=== PATIENT | male | born 1960 | race Caucasian/White ===

== ENCOUNTER 2016-11-20 23:51 | Inpatient (IN) | payer BC, OTHER ==
[~2016-11-20] VITALS: Ht 175.3 cm; Wt 102.1 kg
[2016-11-21] MEDS ORDERED: INSULIN REG SUBCUT (00:13)
[2016-11-21] MEDS ORDERED: METF850T2 PO (00:14)
[2016-11-21] MEDS ORDERED: LISI10TA5 PO (00:15)
[2016-11-24] MEDS ORDERED: THIA100T13 PO (14:59)
[2016-11-24] MEDS ORDERED: MULT-24 PO (14:59)
[2016-11-24] MEDS ORDERED: Nicotine TD (14:59)
[2016-11-24] MEDS ORDERED: Lisinopril PO (14:59)
[2016-11-24] MEDS ORDERED: Acetaminophen PO (14:59)
[2016-11-24] MEDS ORDERED: ASPI-618 PO (14:59)
[2016-11-24] MEDS ORDERED: Metformin Hcl PO (14:59)
[2016-11-24] MEDS ORDERED: GLIP5TAB13 PO (14:59)
[2016-11-24] MEDS ORDERED: Blood Sugar Diagnostic VI (14:59)
[2016-11-24] MEDS ORDERED: Folic Acid PO (14:59)
[2016-11-24 19:19] VITALS: BP 173/108
[2016-11-24] MEDS ORDERED: LORAZEPAM 1 MG TABLET PO ONE (19:45)
[2016-11-24] MEDS ORDERED: DEXTROSE 50% 50 ML DISP.SYRIN IV PRN (19:45)
[2016-11-24 20:00] VITALS: BP 151/96
[2016-11-24 20:08] LABS: *AMPHETAMINE, URINE NEGATIVE (NEGATIVE); *BARBITURATE, URINE NEGATIVE (NEGATIVE); *CANNABINOID, URINE NEGATIVE (NEGATIVE); *COCCAINE, URINE NEGATIVE (NEGATIVE); *OPIATE, URINE POSITIVE (NEGATIVE); *PHENCYCLIDINE SCREEN,URINE NEGATIVE (NEGATIVE)
[2016-11-24] MEDS: BLOOD SUGAR DIAGNOSTIC 1 EACH STRIP VI SCH (20:10)
[2016-11-24] MEDS ORDERED: LOPERAMIDE HCL 2 MG CAPSULE PO PRN ×2 (20:45)
[2016-11-24] MEDS ORDERED: PROMETHAZINE HCL 25 MG/1 ML VIAL IM PRN (20:45)
[2016-11-24] MEDS ORDERED: LORAZEPAM 1 MG TABLET PO PRN ×2 (20:45)
[2016-11-24] MEDS ORDERED: LORAZEPAM 2 MG/1 ML VIAL IM PRN (20:45)
[2016-11-24] MEDS ORDERED: MAGNESIUM HYDROXIDE 30 ML LIQUID UDC PO PRN (20:45)
[2016-11-24] MEDS ORDERED: ACETAMINOPHEN 325 MG TABLET PO PRN (20:45)
[2016-11-24] MEDS ORDERED: DICYCLOMINE HCL 20 MG TABLET PO PRN (20:45)
[2016-11-24] MEDS ORDERED: ONDANSETRON ODT 4 MG TAB.RAPDIS SL PRN (20:45)
[2016-11-24] MEDS ORDERED: IBUPROFEN 600 MG TABLET PO PRN (20:45)
[2016-11-24] MEDS ORDERED: THIAMINE HCL 200 MG/2 ML VIAL IM ONE (20:45)
[2016-11-24] MEDS ORDERED: MAG HYDROX/AL HYDROX/SIMETH 30 ML LIQUID UDC PO PRN (20:45)
[2016-11-24] MEDS ORDERED: MIRALAX 17 GM POWD.PACK PO PRN (20:45)
[2016-11-24] MEDS: INSULIN REGULAR, HUMAN 300 UNITS/3 ML VIAL SQ PRN (20:52)
[2016-11-24] MEDS ORDERED: BUPRENORPHINE HCL 2 MG TAB.SUBL SL PRN (21:00)
[2016-11-24] MEDS: CLONIDINE HCL 0.1 MG TABLET PO PRN (21:20)
[2016-11-24] MEDS: GABAPENTIN 300 MG CAPSULE PO SCH (21:21)
[2016-11-24] MEDS: METFORMIN HCL 500 MG TABLET PO SCH (21:21)
[2016-11-24 22:54] LABS: BASOPHILS % (AUTO) 0.8 % (0.0-2.0); EOSINOPHILS # (AUTO) 0.1 K/uL (0.0-0.7); EOSINOPHILS % (AUTO) 1.4 % (0.0-7.0); HEMATOCRIT 37.5 % (40.0-50.0); HEMOGLOBIN 12.6 g/dL (14.0-18.0); LYMPHOCYTES # (AUTO) 1.5 K/uL (0.8-4.8); LYMPHOCYTES % (AUTO) 28.9 % (20.5-51.5); MEAN CORPUSCULAR HGB CONC 34 g/dL (32.0-37.0); MEAN CORPUSCULAR VOLUME 92.6 fL (82.0-92.0); MONOCYTES # (AUTO) 0.5 K/uL (0.1-1.30); MONOCYTES % (AUTO) 10.2 % (0.0-11.0); NEUTROPHILS % (AUTO) 58.7 % (38.5-71.5); PLATELET COUNT (AUTO) 121 K/uL (150-450); RED BLOOD CELL COUNT(AUTO) 4.05 MIL/uL (4.70-6.10); RED CELL DISTRIBUTION WIDTH 16.1 % (11.5-14.5); WHITE BLOOD COUNT (AUTO) 5.1 K/uL (4.0-11.2)
[2016-11-24 23:01] LABS: ALANINE AMINOTRANSFERASE 60 U/L (16-63); ALBUMIN 3.1 g/dL (3.4-5.0); ALKALINE PHOSPHATASE 73 U/L (50-136); AMYLASE 72 U/L (25-115); ASPARTATE AMINOTRANSFERASE 62 U/L (15-37); BILIRUBIN,TOTAL 0.5 mg/dL (0.2-1.0); CALCIUM 8.1 mg/dL (8.5-10.1); CARBON DIOXIDE 25 mmol/L (21-32); CHLORIDE 104 mmol/L (98-107); CREATININE 0.9 mg/dL (0.6-1.3); GFR 88 mL/min (>60); GLUCOSE 177 mg/dL (74-106); LIPASE 159 U/L (73-393); MAGNESIUM 1.5 mg/dL (1.8-2.4); POTASSIUM 3.1 mmol/L (3.5-5.1); SODIUM SERUM 139 mmol/L (136-145); TOTAL PROTEIN, SERUM 6.3 g/dL (6.4-8.2); UREA NITROGEN, BLOOD 11 mg/dL (7-18)
[2016-11-24 23:05] LABS: THYROID STIMULATING HORMONE 2.816 mIU/mL (0.358-3.740)
[2016-11-24 23:28] LABS: ETHANOL < 3 MG/DL (0-0)
[2016-11-25] VITALS (7 sets, daily range): BP systolic 108–147; BP diastolic 74–93
[2016-11-25 01:31] LABS: HIV-1 p24 ANTIGEN NON REACTIVE (NONREACTIVE); HIV-1/2 ANTIBODY NON REACTIVE (NONREACTIVE)
[2016-11-25] MEDS: CLONIDINE HCL 0.1 MG TABLET PO PRN ×4 (04:04→21:19)
[2016-11-25] MEDS: HYDROXYZINE PAMOATE 25 MG CAPSULE PO PRN (04:04)
[2016-11-25] MEDS: PANTOPRAZOLE SODIUM 40 MG TABLET.DR PO SCH (07:03)
[2016-11-25] MEDS: BLOOD SUGAR DIAGNOSTIC 1 EACH STRIP VI SCH ×4 (08:20→20:30)
[2016-11-25] MEDS: METFORMIN HCL 500 MG TABLET PO SCH ×2 (08:33→18:47)
[2016-11-25] MEDS: glipiZIDE 5 MG TABLET PO SCH ×2 (08:34→16:45)
[2016-11-25] MEDS: DOCUSATE SODIUM 250 MG CAPSULE PO SCH (08:35)
[2016-11-25] MEDS: FOLIC ACID 1 MG TABLET PO SCH (08:35)
[2016-11-25] MEDS: THIAMINE HCL 100 MG TABLET PO SCH (08:35)
[2016-11-25] MEDS: GABAPENTIN 300 MG CAPSULE PO SCH ×3 (08:35→20:39)
[2016-11-25] MEDS: MULTIVITAMINS,THERAPEUTIC TABLET PO SCH (08:35)
[2016-11-25] MEDS: ASPIRIN 81 MG TAB.CHEW GT SCH (08:36)
[2016-11-25] MEDS: INSULIN REGULAR, HUMAN 300 UNIT/3 ML VIAL SQ PRN ×3 (08:45→17:34)
[2016-11-25] MEDS ORDERED: TUBERCULIN,PURIF.PROT.DERIV. 5 TU/0.1 ML TEST ID ONE (09:00)
[2016-11-25] MEDS ORDERED: 5 DAY TAPER OF LORAZEPAM -SERENITY PROTOCOL PO PRN (09:00)
[2016-11-25] MEDS: LORAZEPAM 1 MG TABLET PO SCH ×4 (09:30→20:39)
[2016-11-25] MEDS ORDERED: MAGNESIUM OXIDE 400 MG TABLET PO ONE (11:45)
[2016-11-25] MEDS ORDERED: POTASSIUM CHLORIDE 20 MEQ TAB.PRT.SR PO ONE (20:15)
[2016-11-25] MEDS: INSULIN REGULAR, HUMAN 300 UNITS/3 ML VIAL SQ PRN (20:42)
[2016-11-26] MEDS: HYDROXYZINE PAMOATE 25 MG CAPSULE PO PRN ×2 (01:59→23:34)
[2016-11-26 03:17] VITALS: BP 151/94
[2016-11-26] MEDS: PANTOPRAZOLE SODIUM 40 MG TABLET.DR PO SCH (06:59)
[2016-11-26] MEDS: glipiZIDE 5 MG TABLET PO SCH ×2 (07:53→16:54)
[2016-11-26] MEDS: BLOOD SUGAR DIAGNOSTIC 1 EACH STRIP VI SCH ×4 (07:56→20:59)
[2016-11-26 08:00] VITALS: BP 145/88
[2016-11-26] MEDS: INSULIN REGULAR, HUMAN 300 UNIT/3 ML VIAL SQ PRN ×3 (08:02→16:54)
[2016-11-26] MEDS: MULTIVITAMINS,THERAPEUTIC TABLET PO SCH (08:15)
[2016-11-26] MEDS: ASPIRIN 81 MG TAB.CHEW GT SCH (08:15)
[2016-11-26] MEDS: THIAMINE HCL 100 MG TABLET PO SCH (08:15)
[2016-11-26] MEDS: FOLIC ACID 1 MG TABLET PO SCH (08:15)
[2016-11-26] MEDS: CLONIDINE HCL 0.1 MG TABLET PO PRN ×2 (08:16→14:19)
[2016-11-26] MEDS: METFORMIN HCL 500 MG TABLET PO SCH ×2 (08:16→18:24)
[2016-11-26] MEDS: DOCUSATE SODIUM 250 MG CAPSULE PO SCH (08:16)
[2016-11-26] MEDS: LORAZEPAM 1 MG TABLET PO SCH ×3 (08:16→20:51)
[2016-11-26] MEDS: GABAPENTIN 300 MG CAPSULE PO SCH ×3 (08:16→20:52)
[2016-11-26 08:35] LABS: CALCIUM 8.5 mg/dL (8.5-10.1); MAGNESIUM 1.7 mg/dL (1.8-2.4); POTASSIUM 4.2 mmol/L (3.5-5.1)
[2016-11-26 08:40] LABS: BASOPHILS % (AUTO) 0.7 % (0.0-2.0); EOSINOPHILS # (AUTO) 0.1 K/uL (0.0-0.7); EOSINOPHILS % (AUTO) 1.8 % (0.0-7.0); HEMATOCRIT 34.1 % (40.0-50.0); HEMOGLOBIN 11.4 g/dL (14.0-18.0); LYMPHOCYTES # (AUTO) 1.5 K/uL (0.8-4.8); LYMPHOCYTES % (AUTO) 30.5 % (20.5-51.5); MEAN CORPUSCULAR HEMOGLOBIN 31.1 uug (27.0-31.0); MEAN CORPUSCULAR HGB CONC 34 g/dL (32.0-37.0); MEAN CORPUSCULAR VOLUME 93.1 fL (82.0-92.0); MONOCYTES # (AUTO) 0.6 K/uL (0.1-1.30); MONOCYTES % (AUTO) 12.4 % (0.0-11.0); NEUTROPHILS # (AUTO) 2.7 K/uL (1.8-8.9); NEUTROPHILS % (AUTO) 54.6 % (38.5-71.5); PLATELET COUNT (AUTO) 123 K/uL (150-450); RED BLOOD CELL COUNT(AUTO) 3.66 MIL/uL (4.70-6.10); RED CELL DISTRIBUTION WIDTH 16.1 % (11.5-14.5); WHITE BLOOD COUNT (AUTO) 4.9 K/uL (4.0-11.2)
[2016-11-26 12:00] VITALS: BP 135/85
[2016-11-26] MEDS ORDERED: MAGNESIUM OXIDE 400 MG TABLET PO ONE (13:00)
[2016-11-26] MEDS ORDERED: CLONIDINE HCL 0.1 MG TABLET PO SCH (15:45)
[2016-11-26] MEDS ORDERED: METHOCARBAMOL 750 MG TABLET PO PRN (15:45)
[2016-11-26 16:00] VITALS: BP 130/82
[2016-11-26 20:00] VITALS: BP 125/85
[2016-11-26] MEDS: CLONIDINE HCL 0.1 MG TABLET PO SCH (20:51)
[2016-11-26] MEDS: METHOCARBAMOL 750 MG TABLET PO SCH (20:52)
[2016-11-26] MEDS ORDERED: TRAZODONE 50 MG TABLET PO SCH (21:00)
[2016-11-27 04:00] VITALS: BP 131/79
[2016-11-27] MEDS: PANTOPRAZOLE SODIUM 40 MG TABLET.DR PO SCH (06:24)
[2016-11-27 08:00] VITALS: BP 138/88
[2016-11-27] MEDS: FOLIC ACID 1 MG TABLET PO SCH (08:12)
[2016-11-27] MEDS: METFORMIN HCL 500 MG TABLET PO SCH ×2 (08:12→17:17)
[2016-11-27] MEDS: CLONIDINE HCL 0.1 MG TABLET PO SCH ×3 (08:12→20:50)
[2016-11-27] MEDS: MULTIVITAMINS,THERAPEUTIC TABLET PO SCH (08:12)
[2016-11-27] MEDS: METHOCARBAMOL 750 MG TABLET PO SCH ×3 (08:12→20:51)
[2016-11-27] MEDS: LORAZEPAM 1 MG TABLET PO SCH ×4 (08:13→20:50)
[2016-11-27] MEDS: ASPIRIN 81 MG TAB.CHEW GT SCH (08:13)
[2016-11-27] MEDS: GABAPENTIN 300 MG CAPSULE PO SCH ×3 (08:13→20:51)
[2016-11-27] MEDS: THIAMINE HCL 100 MG TABLET PO SCH (08:13)
[2016-11-27] MEDS: BLOOD SUGAR DIAGNOSTIC 1 EACH STRIP VI SCH ×4 (08:15→21:05)
[2016-11-27] MEDS: INSULIN REGULAR, HUMAN 300 UNIT/3 ML VIAL SQ PRN ×3 (08:17→17:22)
[2016-11-27] MEDS: glipiZIDE 5 MG TABLET PO SCH ×2 (08:24→17:17)
[2016-11-27] MEDS: DOCUSATE SODIUM 250 MG CAPSULE PO SCH (08:24)
[2016-11-27 12:00] VITALS: BP 125/77
[2016-11-27 16:00] VITALS: BP 128/78
[2016-11-27 20:00] VITALS: BP 126/84
[2016-11-27] MEDS: TRAZODONE 100 MG TABLET PO SCH (20:51)
[2016-11-27] MEDS ORDERED: TRAZODONE 50 MG TABLET PO SCH (21:00)
[2016-11-28 04:16] LABS: HCV AB 1.3 s/co ratio (0.0-0.9); HEPATITIS B CORE AB, IgM Negative (Negative); HEPATITIS B SURFACE AG Negative (Negative)
[2016-11-28] MEDS: PANTOPRAZOLE SODIUM 40 MG TABLET.DR PO SCH (07:02)
[2016-11-28] MEDS: BLOOD SUGAR DIAGNOSTIC 1 EACH STRIP VI SCH ×4 (07:53→20:56)
[2016-11-28] MEDS: glipiZIDE 5 MG TABLET PO SCH ×2 (07:53→17:19)
[2016-11-28] MEDS: METFORMIN HCL 500 MG TABLET PO SCH ×2 (07:53→17:19)
[2016-11-28 08:00] VITALS: BP 118/78
[2016-11-28] MEDS: DOCUSATE SODIUM 250 MG CAPSULE PO SCH (08:01)
[2016-11-28] MEDS: MULTIVITAMINS,THERAPEUTIC TABLET PO SCH (08:10)
[2016-11-28] MEDS: FOLIC ACID 1 MG TABLET PO SCH (08:10)
[2016-11-28] MEDS: THIAMINE HCL 100 MG TABLET PO SCH (08:11)
[2016-11-28] MEDS: CLONIDINE HCL 0.1 MG TABLET PO SCH ×3 (08:11→20:51)
[2016-11-28] MEDS: METHOCARBAMOL 750 MG TABLET PO SCH ×3 (08:11→20:51)
[2016-11-28] MEDS: LORAZEPAM 1 MG TABLET PO SCH ×3 (08:11→20:51)
[2016-11-28] MEDS: GABAPENTIN 300 MG CAPSULE PO SCH ×3 (08:11→20:51)
[2016-11-28] MEDS: ASPIRIN 81 MG TAB.CHEW GT SCH (08:11)
[2016-11-28] MEDS: INSULIN REGULAR, HUMAN 300 UNIT/3 ML VIAL SQ PRN ×3 (08:12→17:22)
[2016-11-28 12:00] VITALS: BP 146/79
[2016-11-28 16:00] VITALS: BP 136/87
[2016-11-28 20:00] VITALS: BP 130/88
[2016-11-28] MEDS: TRAZODONE 100 MG TABLET PO SCH (22:15)
[2016-11-29] MEDS: PANTOPRAZOLE SODIUM 40 MG TABLET.DR PO SCH (07:04)
[2016-11-29] MEDS ORDERED: glipiZIDE 5 MG TABLET PO SCH (07:30)
[2016-11-29 08:00] VITALS: BP 124/72
[2016-11-29] MEDS: BLOOD SUGAR DIAGNOSTIC 1 EACH STRIP VI SCH ×4 (08:03→20:55)
[2016-11-29] MEDS: INSULIN REGULAR, HUMAN 300 UNIT/3 ML VIAL SQ PRN ×3 (08:04→17:09)
[2016-11-29] MEDS: glipiZIDE 10 MG TABLET PO SCH ×2 (08:05→17:13)
[2016-11-29] MEDS: MULTIVITAMINS,THERAPEUTIC TABLET PO SCH (08:07)
[2016-11-29] MEDS: METHOCARBAMOL 750 MG TABLET PO SCH ×3 (08:07→20:51)
[2016-11-29] MEDS: METFORMIN HCL 500 MG TABLET PO SCH ×2 (08:07→18:39)
[2016-11-29] MEDS: ASPIRIN 81 MG TAB.CHEW GT SCH (08:07)
[2016-11-29] MEDS: LORAZEPAM 1 MG TABLET PO SCH ×2 (08:07→20:50)
[2016-11-29] MEDS: CLONIDINE HCL 0.1 MG TABLET PO SCH ×3 (08:07→20:50)
[2016-11-29] MEDS: FOLIC ACID 1 MG TABLET PO SCH (08:07)
[2016-11-29] MEDS: GABAPENTIN 300 MG CAPSULE PO SCH ×3 (08:07→20:51)
[2016-11-29] MEDS: THIAMINE HCL 100 MG TABLET PO SCH (08:07)
[2016-11-29] MEDS: DOCUSATE SODIUM 250 MG CAPSULE PO SCH (08:09)
[2016-11-29 12:00] VITALS: BP 117/74
[2016-11-29] MEDS: ACETAMINOPHEN ES 500 MG TABLET PO SCH ×2 (12:07→17:13)
[2016-11-29] MEDS: HYDROXYZINE PAMOATE 25 MG CAPSULE PO SCH ×3 (12:07→20:51)
[2016-11-29 16:00] VITALS: BP 128/78
[2016-11-29 20:00] VITALS: BP 120/76
[2016-11-29] MEDS: INSULIN REGULAR, HUMAN 300 UNITS/3 ML VIAL SQ PRN (20:59)
[2016-11-29] MEDS: TRAZODONE 100 MG TABLET PO SCH (23:09)
[2016-11-30] VITALS: BP 120/82
[2016-11-30] MEDS: PANTOPRAZOLE SODIUM 40 MG TABLET.DR PO SCH (06:31)
[2016-11-30 08:00] VITALS: BP 121/72
[2016-11-30] MEDS: BLOOD SUGAR DIAGNOSTIC 1 EACH STRIP VI SCH ×4 (08:10→22:02)
[2016-11-30] MEDS: HYDROXYZINE PAMOATE 25 MG CAPSULE PO SCH ×4 (08:23→22:00)
[2016-11-30] MEDS: THIAMINE HCL 100 MG TABLET PO SCH (08:23)
[2016-11-30] MEDS: GABAPENTIN 300 MG CAPSULE PO SCH ×3 (08:23→21:59)
[2016-11-30] MEDS: ACETAMINOPHEN ES 500 MG TABLET PO SCH ×3 (08:23→17:19)
[2016-11-30] MEDS: MULTIVITAMINS,THERAPEUTIC TABLET PO SCH (08:24)
[2016-11-30] MEDS: ASPIRIN 81 MG TAB.CHEW GT SCH (08:24)
[2016-11-30] MEDS: FOLIC ACID 1 MG TABLET PO SCH (08:24)
[2016-11-30] MEDS: CLONIDINE HCL 0.1 MG TABLET PO SCH ×3 (08:24→21:59)
[2016-11-30] MEDS: METFORMIN HCL 500 MG TABLET PO SCH ×2 (08:24→18:10)
[2016-11-30] MEDS: glipiZIDE 10 MG TABLET PO SCH ×2 (08:24→17:19)
[2016-11-30] MEDS: METHOCARBAMOL 750 MG TABLET PO SCH ×3 (08:24→22:00)
[2016-11-30] MEDS: INSULIN REGULAR, HUMAN 300 UNIT/3 ML VIAL SQ PRN ×2 (08:26→18:16)
[2016-11-30] MEDS: DOCUSATE SODIUM 250 MG CAPSULE PO SCH (08:31)
[2016-11-30 12:00] VITALS: BP 130/76
[2016-11-30 14:58] LABS: *AMPHETAMINE, URINE NEGATIVE (NEGATIVE); *BARBITURATE, URINE NEGATIVE (NEGATIVE); *CANNABINOID, URINE NEGATIVE (NEGATIVE); *COCCAINE, URINE NEGATIVE (NEGATIVE); *OPIATE, URINE NEGATIVE (NEGATIVE); *PHENCYCLIDINE SCREEN,URINE NEGATIVE (NEGATIVE)
[2016-11-30 16:00] VITALS: BP 111/63
[2016-11-30 20:00] VITALS: BP 113/74
[2016-11-30] MEDS: TRAZODONE 100 MG TABLET PO SCH (21:59)
[2016-11-30] MEDS: INSULIN REGULAR, HUMAN 300 UNITS/3 ML VIAL SQ PRN (22:11)
[2016-12-01] MEDS: PANTOPRAZOLE SODIUM 40 MG TABLET.DR PO SCH (07:11)
[2016-12-01 08:07] VITALS: BP 124/80
[2016-12-01] MEDS: METFORMIN HCL 500 MG TABLET PO SCH (08:20)
[2016-12-01] MEDS: glipiZIDE 10 MG TABLET PO SCH (08:20)
[2016-12-01] MEDS: BLOOD SUGAR DIAGNOSTIC 1 EACH STRIP VI SCH (08:21)
[2016-12-01 08:22] VITALS: BP 120/81
[2016-12-01] MEDS: ASPIRIN 81 MG TAB.CHEW GT SCH (08:22)
[2016-12-01] MEDS: METHOCARBAMOL 750 MG TABLET PO SCH (08:22)
[2016-12-01] MEDS: DOCUSATE SODIUM 250 MG CAPSULE PO SCH ×2 (08:22→08:29)
[2016-12-01] MEDS: CLONIDINE HCL 0.1 MG TABLET PO SCH (08:22)
[2016-12-01] MEDS: THIAMINE HCL 100 MG TABLET PO SCH (08:22)
[2016-12-01] MEDS: ACETAMINOPHEN ES 500 MG TABLET PO SCH (08:22)
[2016-12-01] MEDS: FOLIC ACID 1 MG TABLET PO SCH (08:22)
[2016-12-01] MEDS: GABAPENTIN 300 MG CAPSULE PO SCH (08:22)
[2016-12-01] MEDS: MULTIVITAMINS,THERAPEUTIC TABLET PO SCH (08:22)
[2016-12-01] MEDS: HYDROXYZINE PAMOATE 25 MG CAPSULE PO SCH (08:22)
[2016-12-01] MEDS: INSULIN REGULAR, HUMAN 300 UNIT/3 ML VIAL SQ PRN (08:27)
[2016-12-01] MEDS ORDERED: Gabapentin PO (08:27)
[2016-12-01] MEDS ORDERED: HYDR-3895 PO (08:27)
[2016-12-01] MEDS ORDERED: Ibuprofen PO (08:27)
[2016-12-01] MEDS ORDERED: Glipizide PO (08:27)
[2016-12-01] MEDS ORDERED: Trazodone Hcl PO (08:27)
[2016-12-01] MEDS ORDERED: DICY20TA28 PO (08:27)
[2016-12-01] MEDS ORDERED: METH-33 PO (08:27)
[2016-12-01] MEDS ORDERED: Metformin Hcl PO (08:27)
[2016-12-01] MEDS ORDERED: PANT40TA2 PO (08:27)
[2016-12-01] MEDS ORDERED: CLON0.1T14 PO (08:27)
== END 2016-12-01 09:36 | DRG 895 ==
LOC: SRC 23:51 → UNDOADMIN 23:51 → SRC 11-24 18:01
PROVIDERS: ADMIT Internal Medicine; ATTEND Internal Medicine
PROC: HZ2ZZZZ Detoxification Services for Substance Abuse Treatment (ICD-10-PCS; principal; 2016-11-24)
PROC: HZ41ZZZ Group Counseling for Substance Abuse Treatment, Behavioral (ICD-10-PCS; 2016-11-25)
PROC: HZ31ZZZ Individual Counseling for Substance Abuse Treatment, Behavioral (ICD-10-PCS; 2016-11-27)
DX: F10.230 Alcohol dependence with withdrawal, uncomplicated (principal); Y90.9 Presence of alcohol in blood, level not specified; E87.6 Hypokalemia; G47.00 Insomnia, unspecified; I10 Essential (primary) hypertension; D50.9 Iron deficiency anemia, unspecified; B19.20 Unspecified viral hepatitis C without hepatic coma; F17.210 Nicotine dependence, cigarettes, uncomplicated; Z79.82 Long term (current) use of aspirin; E11.65 Type 2 diabetes mellitus with hyperglycemia; Z79.4 Long term (current) use of insulin; Z79.84 Long term (current) use of oral hypoglycemic drugs
CPT/HCPCS: 36415; 70030-TC; 76700; 80307; 83690; 83735; 84443; 85025; 86580; 86592; 86705; 86803; 87340; 87806; A4663; G6040-TC; J1815; J3411

== ENCOUNTER 2018-04-01 13:31 | Inpatient (IN) | payer OTHER, BC ==
[~2018-04-01] VITALS: Ht 180.3 cm; Wt 90.7 kg
[~2018-04-01 13:31] MED LIST: ASPI-618 PO; Acetaminophen PO; Blood Sugar Diagnostic VI; CLON0.1T14 PO; DICY20TA28 PO; Folic Acid PO; Gabapentin PO; Glipizide PO; HYDR-3895 PO; Ibuprofen PO; METH-33 PO; MULT-24 PO; Metformin Hcl PO; Nicotine TD; PANT40TA2 PO; THIA100T13 PO; Trazodone Hcl PO
[2018-04-01 15:10] VITALS: BP 126/76
--- NOTE | 2018-04-01 15:10 | NUR ---
Pre-assessment: Pt was seen and assessed in intake office, pt is extremely intoxicated and verbally aggressive. pt appears flushed and incoherent. pt verbalized he drinks "a lot of alcohol and takes roxycodone or hydrocodone". pt is accompanied by girlfriend,brother and sponsor. they were the main source of information for patient. pt is in a wheelchair and will remain on a 1:1 for unsteady gait and safety.
[2018-04-01] MEDS ORDERED: LORAZEPAM 1 MG TABLET PO PRN ×2 (15:30)
[2018-04-01] MEDS ORDERED: 5 DAY TAPER VALIUM-SERENITY PROTOCOL PO PRN (15:30)
[2018-04-01] MEDS ORDERED: MAG HYDROX/AL HYDROX/SIMETH 30 ML LIQUID UDC PO PRN (15:30)
[2018-04-01] MEDS ORDERED: LORAZEPAM 2 MG/1 ML VIAL IM PRN (15:30)
[2018-04-01] MEDS ORDERED: ONDANSETRON HCL 4 MG TABLET PO PRN (15:30)
[2018-04-01] MEDS ORDERED: ONDANSETRON ODT 4 MG TAB.RAPDIS SL PRN (15:30)
[2018-04-01] MEDS ORDERED: THIAMINE HCL 200 MG/2 ML VIAL IM ONE (15:30)
[2018-04-01] MEDS ORDERED: MIRALAX 17 GM POWD.PACK PO PRN (15:30)
[2018-04-01] MEDS ORDERED: MAGNESIUM HYDROXIDE 30 ML LIQUID UDC PO PRN (15:30)
[2018-04-01] MEDS ORDERED: LOPERAMIDE HCL 2 MG CAPSULE PO PRN ×2 (15:30)
[2018-04-01] MEDS ORDERED: DEXTROSE 50% 50 ML DISP.SYRIN IV PRN (15:45)
[2018-04-01] MEDS: CLONIDINE HCL 0.1 MG TABLET PO PRN (16:02)
[2018-04-01] MEDS: HYDROXYZINE PAMOATE 25 MG CAPSULE PO PRN (16:02)
--- NOTE | 2018-04-01 16:02 | NUR ---
PRN ADMINISTRATION: PT IS SCREAMING AND YELLING WANTING SOMETHING TO "SLEEP". PT IS SEVERELY INTOXICATED EXPLAINED TO PT BECAUSE HE JUST HAD A LARGE AMOUNT OF ALCOHOL WE CANNOT ADMINISTERED CONTROLLED SUBSTANCES. PT THEN BEGAN TO CUSS AND VERBALLY ESCALATE. CLONIDINE AND VISTARIL WERE ADMINISTERED TO HELP WITH AGITATION
--- NOTE | 2018-04-01 16:27 | NUR ---
MEDICATION REFUSED Pt refused to have Vitamin B1 IM as scheduled to be administrated at ordered. Pt was educated on the importance of medication but is unable to comprehend Pt is noted to be intoxicated and is agitated at this time. Further education is needed.
[2018-04-01] MEDS: BLOOD SUGAR DIAGNOSTIC 1 EACH STRIP VI SCH ×2 (16:45→20:23)
[2018-04-01] MEDS: INSULIN REGULAR, HUMAN 300 UNIT/3 ML VIAL SQ PRN (16:51)
[2018-04-01 17:35] LABS: *AMPHETAMINE, URINE NEGATIVE (NEGATIVE); *BARBITURATE, URINE NEGATIVE (NEGATIVE); *CANNABINOID, URINE NEGATIVE (NEGATIVE); *COCCAINE, URINE NEGATIVE (NEGATIVE); *OPIATE, URINE POSITIVE (NEGATIVE); *PHENCYCLIDINE SCREEN,URINE NEGATIVE (NEGATIVE)
--- NOTE | 2018-04-01 18:00 | NUR ---
CONTRABAND WASTE: BOTH PRIMARY NURSE ADRIANA AND CHARGE NURSE DISPOSED AND WASTED OF MULTIPLE MARIJUANA PRODUCTS WHICH INCLUDED, A VAPE PEN WITH WAX, MULTIPLE JOINTS, AND MINTS.
[2018-04-01 18:14] LABS: BASOPHILS # (AUTO) 0.1 K/uL (0.0-8.0); BASOPHILS % (AUTO) 0.8 % (0.0-2.0); EOSINOPHILS # (AUTO) 0.1 K/uL (0.0-0.7); EOSINOPHILS % (AUTO) 1.3 % (0.0-7.0); HEMATOCRIT 43.3 % (36.7-47.1); HEMOGLOBIN 14.8 g/dL (12.5-16.3); LYMPHOCYTES # (AUTO) 3.3 K/uL (20.0-40.0); MEAN CORPUSCULAR HEMOGLOBIN 29.3 uug (23.8-33.4); MEAN CORPUSCULAR HGB CONC 34 g/dL (32.5-36.3); MEAN CORPUSCULAR VOLUME 85.6 fL (73.0-96.2); MONOCYTES # (AUTO) 0.3 K/uL (2.0-10.0); MONOCYTES % (AUTO) 4.1 % (0.0-11.0); NEUTROPHILS # (AUTO) 3.2 K/uL (1.8-8.9); NEUTROPHILS % (AUTO) 46.8 % (38.5-71.5); PLATELET COUNT (AUTO) 215 K/uL (152-348); RED BLOOD CELL COUNT(AUTO) 5.05 MIL/uL (4.06-5.63); WHITE BLOOD COUNT (AUTO) 6.9 K/uL (3.6-10.2)
[2018-04-01 18:26] VITALS: BP 142/88
[2018-04-01 18:31] LABS: BILIRUBIN,TOTAL 0.5 mg/dL (0.2-1.0); CREATININE 0.8 mg/dL (0.6-1.3); MAGNESIUM 1.9 mg/dL (1.8-2.4); POTASSIUM 3.3 mmol/L (3.5-5.1); TOTAL PROTEIN, SERUM 6.6 g/dL (6.4-8.2)
[2018-04-01] MEDS: QUETIAPINE FUMARATE 25 MG TABLET PO PRN (18:31)
--- NOTE | 2018-04-01 18:31 | NUR ---
PRN GIVEN pt was noted with increase agitation and verbally aggressive. Seroquel 25mg PO PRN was given as ordered. Will continue to monitor.
--- NOTE | 2018-04-01 19:22 | NUR ---
ADMISSION NOTE Pt is a 58 yr old male presenting himself to [facility] for ETOH use. Pt is alert and orient to person, place and situation. Pt is noted to be intoxicated and breath smell of alcohol. Pt is noted with slurred speech, facial flushed and unsteady gait and was wheelchair up to the unit at 1520. Pt is a poor historian and was given history by brother, sponsor and girlfriend with consent of pt during intake. Pt has PMH of Type 2 diabetes Mellitus, HTN, Chronic pain, Anxiety, Depression and Sx hx of back, neck and knee. Pt has hx of withdrawal induced seizure 4 times, last seizure was 3 years ago; pt has withdrawal induced delirium from alcohol withdrawal. Pt has hx of 5150 for gravely disabled over 2 years ago but is unclear what occurred and date/time. Pt is on 1:1 for unsteady gait. Pt is on fall and seizure precautions. Pt states of being full code, NKA and follows a controlled carb diabetic diet. Pt is 200lbs and his 5'11" in height. SUBSTANCE HISTORY ETOH - Pt has been drinking since the age of 15-16 years old. Pt state of being sober for 1.5 years since November 24, 2016 and relapsed 10 days ago. Pt has been drinking 32oz of vodka daily for 10 days. last drink was today on 04/01/18 at 1500, pt drank 16oz of vodka prior to admission. Hydrocodone - Pt has been consuming hydrocodone for 2 years but was sober for 1.5 years. Pt relapsed and was consuming 15 tabs of 10mg for 2 days. Last use was today on 04/01/18, pt states of consuming 5 tabs of 10mg PO this morning. Pt is unclear what time and brother, sponsor and girlfriend are unable to recall time. Per family members, Pt was at [facility] on November 24, 2016 and maintain sobriety for 1.5 years then relapsed 10 days ago. Due to pt being intoxicated and is observed with increase agitation and aggression, pt is unable to describe his motivation for sobriety. Endorsed to security shift supervisor nurse to f/u with Pt's motivation, medication reconciliation, abnormal lab and patient teachings. Report to Dr. Diaz with new ordered for pt to start on 5 day Valium taper on 04/02/18. New order was noted and carried. Addendum: 04/01/18 at 1957 by ADRIANA HU LVN CIWA score is unable to assess due to pt is intoxicated. No withdrawal noted at this time. Pt states typical withdrawal symptoms are anxiety, agitation, DT's, withdrawal induced seizures, chills, sweats and n/v
--- NOTE | 2018-04-01 19:30 | NUR ---
START OF SHIFT Pt is a 58 y/o male admitted on 04/01/18 for ETOH withdrawal. Pt will start a 5 day Valium taper tomorrow and has PRN Ativan available at this time. PRN Seroquel, Clonidine and Vistaril administered during day shift and all CIWAs deferred d/t pt intoxication. Pt is on a 1:1 for unsteady gait. Upon assessment pt is intoxicated and breath and room smell like ETOH. Pt presents with drowsiness, increased HR, agitation and flushed skin. Medications due. Safety measures in place. 1:1 sitter at bedside. Will continue to monitor.
[2018-04-01 20:00] VITALS: BP 128/85
--- NOTE | 2018-04-01 20:00 | NUR ---
SAJAN DEFERRED Pt laying in bed with eyes closed since beginning of shift, unable to stay awake to answer questions. Pt is intoxicated and smells of ETOH in room. 1:1 sitter at bedside for safety. Will continue to monitor.
--- NOTE | 2018-04-01 21:00 | NUR ---
ACCU-CHECK BS 125, no Humulin R required per sliding scale orders.
[2018-04-01] MEDS ORDERED: LISI-603 PO (23:21)
[2018-04-01] MEDS ORDERED: PHEN37.511 PO (23:21)
[2018-04-01] MEDS ORDERED: IBUP-1957 PO (23:21)
[2018-04-01] MEDS ORDERED: ROSU20TA PO (23:21)
[2018-04-01] MEDS ORDERED: ASPI81TA31 PO (23:21)
[2018-04-01] MEDS ORDERED: TIZA4TAB4 PO (23:21)
[2018-04-01] MEDS ORDERED: PREG150C PO (23:21)
[2018-04-01] MEDS ORDERED: DICL50TA9 PO (23:21)
[2018-04-01] MEDS ORDERED: SERT50TA PO (23:21)
[2018-04-01] MEDS ORDERED: METH500T PO (23:21)
[2018-04-01] MEDS ORDERED: GABA600T2 PO (23:21)
[2018-04-01] MEDS ORDERED: METF750T2 PO (23:21)
[2018-04-01] MEDS ORDERED: GLIM4TAB3 PO (23:21)
[2018-04-01] MEDS ORDERED: META800T85 PO (23:21)
[2018-04-02] VITALS (9 sets, daily range): BP systolic 114–179; BP diastolic 72–113
--- NOTE | 2018-04-02 | NUR ---
CIWA DEFERRED Pt laying in bed with eyes closed and pt remains intoxicated, CIWA deferred, to be assessed when pt is awake per orders. Respirations even and unlabored. 1:1 sitter at bedside. Will continue to monitor.
[2018-04-02] MEDS: CLONIDINE HCL 0.1 MG TABLET PO PRN ×3 (00:18→20:31)
--- NOTE | 2018-04-02 00:18 | NUR ---
PRN CLONIDINE ADMINISTRATION BP 168/102 and HR 76. Pt laying in bed with eyes closed. 1:1 sitter at bedside. Will continue to monitor.
--- NOTE | 2018-04-02 01:18 | NUR ---
PRN CLONIDINE REASSESSMENT BP 151/89 and HR 79. Safety measures in place. 1:1 sitter at bedside. Will continue to monitor.
--- NOTE | 2018-04-02 04:00 | NUR ---
CIWA 21 Pt woke up after getting vitals taken and presents with chills, tremors, severe agitation, anxiety, flushed skin, "skin burning all over," photosensitivity, and sensitivity to sounds.
[2018-04-02] MEDS: QUETIAPINE FUMARATE 25 MG TABLET PO PRN ×2 (04:04→20:30)
[2018-04-02] MEDS: IBUPROFEN 600 MG TABLET PO PRN ×2 (04:04→20:30)
--- NOTE | 2018-04-02 04:04 | NUR ---
PRN ATIVAN 2 MG, SEROQUEL AND MOTRIN ADMINISTRATION Pt presents with severe agitation, anxiety, tremors, chills, flushed skin, "skin is burning all over," photosensitivity, and sensitivity to sounds. Pt also complains of sore throat at this time, no fever present.
[2018-04-02] MEDS ORDERED: hydrALAZINE HCL 50 MG TABLET PO ONE (04:15)
--- NOTE | 2018-04-02 04:15 | NUR ---
MD NOTIFICATION BP 179/113 and HR 80. MD notified, orders for one time Hydralazine. Pt is asymptomatic.
--- NOTE | 2018-04-02 05:04 | NUR ---
PRN ATIVAN 2 MG, MOTRIN AND SEROQUEL REASSESSMENT Pt laying in bed with eyes closed snoring, medications noted effective. Respirations even and unlabored. Safety measures in place. 1:1 sitter at bedside. Will continue to monitor.
--- NOTE | 2018-04-02 07:19 | NUR ---
END OF SHIFT Pt is a 58 y/o male admitted on 04/01/18 for ETOH withdrawal. Pt starts a 5 day Valium taper today, had PRN Ativan available throughout shift. Pt has 1:1 sitter at bedside for unsteady gait. Pt has hx of withdrawal-induced delirium, HTN and DM type 2. Blood sugar 125 at 2100. Pt presented with anxiety, severe agitation, tremors, chills, flushed skin, skin burning all over, photosensitivity, sensitivity to sounds, sweats, fatigue, disheveled appearance, emotional lability, and elevated BP. 1999 and CIWAs deferred d/t pt being intoxicated and sleeping. Pt woke up at 0400 with S/S of withdrawal. BP 179/113 at 0400, three hours after administration of Clonidine, notified and gave one time order to Hydralazine 50 mg. PRN Ativan 2 mg, Clonidine, Motrin and Seroquel 25 mg administered, effective in S/S of withdrawal as verbalized by pt. Last CIWA 21 at 0400. Pt slept 8 hours. Intake 700 ml, void x 1, stool x 1. Safety measures in place. 1:1 sitter at bedside. Pts needs have been met. Endorsed to day shift nurse. Addendum: 04/02/18 at 0721 by CLIFTON THOMPSON RN Additional: Pt instruction signatures, medication bags signatures, and motivation information endorsed to day shift nurse.
--- NOTE | 2018-04-02 07:30 | NUR ---
Start of Shift Yacht Rigger received report on 58 year old male admitted to [facility] on 04/01/18 for medical management of ETOH withdrawals. Pt endorses PMH of DM II, HTN, Chronic Pain and multiple surgeries, pt with a history of withdrawal induced delirium. Endorses PPH of Anxiety and Depression. Pt endorses NKA, full code and Diabetic Diet. Pt administered 2mg Ativan(withdrawal symptoms), Motrin(pain), Clonidine(HTN) and Seroquel(insomnia) as PRN medication per report. Pt last recorded CIWA 21, per report. Pt currently on 1:1 staffing due to safety and fall risk. Yacht Rigger encounters pt in pts room, resting with eyes closed and even and unlabored respirations noted. Bed in low position with wheels locked and side rails up x2. Will continue to monitor, support and encourage according to plan of care.
[2018-04-02] MEDS: BLOOD SUGAR DIAGNOSTIC 1 EACH STRIP VI SCH ×4 (07:47→20:38)
[2018-04-02] MEDS: INSULIN REGULAR, HUMAN 300 UNIT/3 ML VIAL SQ PRN ×3 (07:51→16:47)
--- NOTE | 2018-04-02 08:00 | NUR ---
CIWA 21 Pt is diaphoretic, tremulous, anxious and restless. Pt with complaints of head ache, nausea and TH. Will continue to monitor, support and encourage according to plan of care.
[2018-04-02] MEDS: THIAMINE HCL 100 MG TABLET PO SCH (08:45)
[2018-04-02] MEDS: MULTIVITAMINS,THERAPEUTIC TABLET PO SCH (08:45)
[2018-04-02] MEDS: DIAZEPAM 10 MG TABLET PO SCH ×4 (08:45→20:31)
[2018-04-02] MEDS: FOLIC ACID 1 MG TABLET PO SCH (08:45)
--- NOTE | 2018-04-02 08:45 | NUR ---
PRN Clonidine Pt's BP on routine VS check: 162/88. Medication administered per parameters. Pt tolerated well. Will continue to monitor, support and encourage according to plan of care.
[2018-04-02] MEDS ORDERED: TUBERCULIN,PURIF.PROT.DERIV. 5 TU/0.1 ML TEST ID ONE (09:00)
--- NOTE | 2018-04-02 09:45 | NUR ---
PRN Re-Assessment Pt's BP on re-check: 148/86 with P: 78. Will continue to monitor, support and encourage according to plan of care.
[2018-04-02] MEDS ORDERED: Medication Not On Formulary EA ([Folic Acid] 1 MG) PO SCH (11:30)
[2018-04-02] MEDS ORDERED: THIAMINE HCL 100 MG TABLET PO SCH (11:30)
[2018-04-02] MEDS ORDERED: GLIMEPIRIDE 4 MG TABLET PO SCH (11:30)
[2018-04-02] MEDS ORDERED: MULTIVITAMINS,THERAPEUTIC TABLET PO SCH (11:30)
[2018-04-02] MEDS ORDERED: Medication Not On Formulary EA ([Acetaminophen] 650 MG) PO PRN (11:30)
[2018-04-02] MEDS ORDERED: FOLIC ACID 1 MG TABLET PO SCH (12:15)
[2018-04-02] MEDS ORDERED: BUPRENORPHINE HCL 2 MG TAB.SUBL SL PRN (12:30)
[2018-04-02] MEDS: METHOCARBAMOL 750 MG TABLET PO SCH ×3 (12:32→20:31)
[2018-04-02] MEDS: LISINOPRIL 20 MG TABLET PO SCH (12:33)
[2018-04-02] MEDS: ASPIRIN EC 81 MG TABLET.DR PO SCH (13:50)
--- NOTE | 2018-04-02 14:46 | NUR ---
CIWA 20/COWS 18 Pt is tremulous, diaphoretic, anxious, restless legs, endorses nausea, muscle aches and stomach cramps. Pt endorses TH, denies A/VH. Pt denies any SI/HI or any other associated symptoms. Pt with a Linear thought process and clear speech pattern. Pt is lethargic and somnolent, but able to focus on assessment questions. Will continue to monitor, support and encourage according to plan of care.
[2018-04-02] MEDS ORDERED: GLIPIZIDE 10 MG PO SCH (16:30)
[2018-04-02 16:41] LABS: BILIRUBIN,TOTAL 1.2 mg/dL (0.2-1.0); CREATININE 0.9 mg/dL (0.6-1.3); POTASSIUM 3.3 mmol/L (3.5-5.1); TOTAL PROTEIN, SERUM 6.2 g/dL (6.4-8.2)
--- NOTE | 2018-04-02 16:55 | NUR ---
CIWA 15/COWS 19 Pt is tremulous, diaphoretic, restless and anxious. Complains of nausea and body aches. Pt is restless while resting, restless legs and pt is irritable and labile. Will continue to monitor, support and encourage according to plan of care.
[2018-04-02] MEDS: METFORMIN HCL 500 MG TABLET PO SCH (17:09)
[2018-04-02] MEDS ORDERED: METFORMIN HCL 1000 MG PO SCH (18:00)
--- NOTE | 2018-04-02 19:05 | NUR ---
End of Shift Brown Stock Washer provided report on 58 year old male admitted to [facility] on 04/01/18 for medical management of ETOH withdrawals. Pt endorses PMH of DM II, HTN, Chronic Pain and multiple surgeries, pt with a history of withdrawal induced delirium. Endorses PPH of Anxiety and Depression. Pt endorses NKA, full code and Diabetic Diet. Pt administered Clonidine(HTN) PRN on this shift, medication was effective. Pt last recorded CIWA 15 and COWS 19. Pt was started on COWS due to pts reported use of 30mg a day x 1 year. Pt currently on 1:1 staffing due to safety and fall risk. Pt has been resting all shift, up for medication administration, CIWA/COWS assessment and to eat. Pt is lethargic, but able to make his needs known. Pt is anxious, restless and diaphoretic with tremors. Pt complains of head discomfort, nausea and chills. Pt is able to answer questions, but quickly drifts off, unable to stay focused on task. Bed in low position with wheels locked and side rails up x2.
--- NOTE | 2018-04-02 19:30 | NUR ---
START OF SHIFT Pt is a 58 y/o male admitted on the 04/01/18 for ETOH and opiate withdrawal. Pt started a 5 Day Valium taper today and will start a 3 day Subutex taper tomorrow, tolerating Valium taper well. Last COWS 15 and CIWA 19. PRN Clonidine administered during the day. Last BS 183, 3 units of Humulin R administered. Upon assessment Pt presents with anxiety, agitation, fatigue, sweats, tremors, flushed skin, tactile disturbances. Medications due. Safety measures in place. Call light within reach. Will continue to monitor.
--- NOTE | 2018-04-02 20:00 | NUR ---
TALIAWA 15/COWS 19 Pt presents with anxiety, agitation, fatigue, sweats, tremors, flushed skin, tactile disturbances, chills, headache, nausea, stomach cramps, restlessness.
[2018-04-02] MEDS: TRAZODONE 100 MG TABLET PO PRN (20:31)
[2018-04-02] MEDS: DICYCLOMINE HCL 20 MG TABLET PO PRN (20:39)
--- NOTE | 2018-04-02 20:39 | NUR ---
PRN TRAZODONE, CLONIDINE, MOTRIN, SEROQUEL, BENTYL, ZOFRAN ODT ADMINISTRATION Pt requests sleep aid. Pt complains of stomach cramps, nausea, and back pain 04/26. Pt presents with agitation. Safety measures in place. Call light within reach. Will continue to monitor.
--- NOTE | 2018-04-02 21:09 | NUR ---
PRN SCOT ODT REASSESSMENT Pt has improvement in nausea, able to tolerate food and fluids. Safety measures in place. Call light within reach. Will continue to monitor.
--- NOTE | 2018-04-02 21:39 | NUR ---
PRN TRAZODONE, CLONIDINE, MOTRIN, SEROQUEL, BENTYL REASSESSMENT B/P 114/72 Heart Rate 87 Pt laying in bed with eyes closed. Medications noted effective. Respirations even and unlabored. Safety measures in place. Call light within reach. Will continue to monitor.
[2018-04-03] VITALS: BP 121/77
--- NOTE | 2018-04-03 | NUR ---
COWS/CIWA DEFERRED Pt laying in bed with eyes closed, COWS/CIWA deferred, to be assessed when pt is awake per orders. Respirations even and unlabored. Safety measures in place. 1:1 sitter at bedside. Will continue to monitor.
[2018-04-03 04:00] VITALS: BP 116/77
[2018-04-03] MEDS: PANTOPRAZOLE SODIUM 40 MG TABLET.DR PO SCH (06:59)
--- NOTE | 2018-04-03 07:13 | NUR ---
END OF SHIFT Pt is a 58 y/o male admitted on the 04/01/18 for ETOH and opiate withdrawal. Pt started a 5 Day Valium taper on 04/02/18 and will start a 3 day Subutex taper today, tolerating Valium taper well. Pt presented with anxiety, agitation, fatigue, sweats, tremors, flushed skin, tactile disturbances, chills, headache, elevated blood pressure, nausea, stomach cramps, restlessness. Pt also complained of chronic lower back pain 04/26. Last BS 111. Scheduled medication and PRN Trazodone, Clonidine, Motrin, Seroquel, Bentyl, and Zofran administered, effective in S/S of withdrawal as verbalized by Pt. Last COWS 19 and CIWA 15. Pt slept 11 hours. Intake 700 ml, void x 1, stool x 1. Safety measures in place. Call light within reach. Pt's needs have been met. Endorsed to day shift nurse.
--- NOTE | 2018-04-03 07:30 | NUR ---
Start of Shift Corporate Legal Manager received report on 58 year old male admitted to [facility] on 04/01/18 for medical management of ETOH and Opiate withdrawals. Yesterday pt endorsed using 30mg of Hydocodone daily for the past year, and will be started on a Subutex taper this am. Pt endorses PMH of DM II, HTN, Chronic Pain and multiple surgeries, pt with a history of withdrawal induced delirium. Endorses PPH of Anxiety and Depression. Pt endorses NKA, full code and Diabetic Diet. Pt administered Trazodone(insomnia), Clonidine(anxiety), Motrin(pain), Bentyl(stomach cramps) and Zofran(nausea) as PRN medication per report. Pt currently on Valium taper with the Subutex taper staring today. Corporate Legal Manager encounters pt in pts room. Pt is A/O x4, and able to make needs known. Pt is a bit confused on assessment, but clears during questions. Pt is irritable at times, but cooperative with treatment. Linear thought process and clear speech pattern. Reality orientation proved and medication regime education provided with education on Subutex provided. Bed in low position with wheels locked and side rails up x2. Will continue to monitor, support and encourage according to plan of care.
[2018-04-03] MEDS: METFORMIN HCL 500 MG TABLET PO SCH ×2 (07:35→17:30)
[2018-04-03] MEDS: GLIMEPIRIDE 4 MG TABLET PO SCH (07:35)
[2018-04-03] MEDS: INSULIN REGULAR, HUMAN 300 UNIT/3 ML VIAL SQ PRN ×3 (07:35→21:01)
[2018-04-03] MEDS: BLOOD SUGAR DIAGNOSTIC 1 EACH STRIP VI SCH ×4 (07:36→20:57)
--- NOTE | 2018-04-03 08:00 | NUR ---
CIWA 18/COWS 16 Pt is anxious, restless, diaphoretic and tremulous. Pt complain of stomach cramps, body aches and chills. Will continue to monitor, support and encourage according to plan of care.
[2018-04-03 08:07] VITALS: BP 164/92
[2018-04-03 08:10] LABS: HEPATITIS B SURFACE AG Negative (Negative)
[2018-04-03] MEDS: ASPIRIN EC 81 MG TABLET.DR PO SCH (08:20)
[2018-04-03] MEDS: THIAMINE HCL 100 MG TABLET PO SCH (08:20)
[2018-04-03] MEDS: DIAZEPAM 10 MG TABLET PO SCH ×3 (08:20→20:53)
[2018-04-03] MEDS: METHOCARBAMOL 750 MG TABLET PO SCH ×3 (08:20→20:54)
[2018-04-03] MEDS: LISINOPRIL 20 MG TABLET PO SCH (08:20)
[2018-04-03] MEDS: MULTIVITAMINS,THERAPEUTIC TABLET PO SCH (08:20)
[2018-04-03] MEDS: FOLIC ACID 1 MG TABLET PO SCH (08:20)
[2018-04-03] MEDS: DICYCLOMINE HCL 20 MG TABLET PO PRN ×2 (08:22→20:53)
--- NOTE | 2018-04-03 08:22 | NUR ---
LAWANDA Choi Pt is complaining of stomach cramps, and states," can I get something for stomach stuff." Laundry Equipment Operator administered medication per MED order with pt tolerating well. Will continue to monitor, support and encourage according to plan of care.
[2018-04-03] MEDS ORDERED: 3 DAY TAPER BUPRENORPHINE -SERENITY PROTOCOL SL PRN (09:00)
[2018-04-03] MEDS ORDERED: POTASSIUM CHLORIDE 20 MEQ TAB.PRT.SR PO ONE (09:00)
[2018-04-03] MEDS ORDERED: BUPRENORPHINE HCL 2 MG TAB.SUBL SL SCH (09:00)
--- NOTE | 2018-04-03 09:22 | NUR ---
PRN Re-Assessment Pt endorses relief from stomach cramps," whatever you gave me, it worked." Will continue to monitor, support and encourage according to plan of care.
[2018-04-03 12:00] VITALS: BP 115/80
--- NOTE | 2018-04-03 12:00 | NUR ---
CIWA 22/COWS 17 Pt is diaphoretic, tremulous, anxious, restless with complaints of muscle aches and head "tightness". Will continue to monitor, support and encourage according to plan of care.
[2018-04-03] MEDS: BUPRENORPHINE HCL 2 MG TAB.SUBL SL SCH ×2 (14:41→20:54)
[2018-04-03 16:30] VITALS: BP 120/87
--- NOTE | 2018-04-03 16:30 | NUR ---
CIWA 21/COWS 19 Pt is tremulous, diaphoretic, anxious, restless with nausea and muscle aches and cramps of the stomach. Will contineu to monitor, support and encourage according to plan of care.
--- NOTE | 2018-04-03 16:30 | NUR ---
LAWANDA Ativan(2mg) Pt's CIWA 21, pt is diaphoretic, tremulous, anxious, restless and complains of muscle spasms and stomach cramps. Strategy Director administered medication to MD order with pt tolerating well. Will continue to monitor, support and encourage according to plan of care. Addendum: 04/03/18 at 1738 by KEARA EDMONDSON RN Wrong time noted. Administration of medication was at 1730 Addendum: 04/03/18 at 1738 by KEARA EDMONDSON RN With note timed at 1730
--- NOTE | 2018-04-03 16:34 | NUR ---
Admission Motivation Train Control Technician interviewed pt in regards to the motivational component of the admit process. Train Control Technician encounters pt in pt's room. Pt is anxious and restless, but cooperative and pleasant. Pt states he uses and drinks because of anxiety. Pt states he has been looking for a psychiatrist for quite some time, to no avail. Pt states he wakes up in panic attacks and can not find the available resources necessary to help his anxiety. . Pt states he wants to get sober, because "I want to live." He states his anxiety and inability to get help, has lead to his relapse and pt believes this is his greatest barrier to sobriety. Pt describes DUI, health problems and relationship problems as ways his drinking and using have negatively affect pt. Pt approximates 15 attempts at trying t oget sober and believes this time he will exceed, because "I'm just gonna keep trying."
--- NOTE | 2018-04-03 16:42 | NUR ---
Therapist prompted client to attend twice daily group therapy sessions.
[2018-04-03] MEDS ORDERED: LORAZEPAM 1 MG TABLET PO PRN (17:00)
[2018-04-03] MEDS: LORAZEPAM 1 MG TABLET PO PRN ×2 (17:30→22:45)
--- NOTE | 2018-04-03 19:09 | NUR ---
End of Shift Rouge Sifter And Miller provided report on 58 year old male admitted to [facility] on 04/01/18 for medical management of ETOH and Opiate withdrawals. Yesterday pt endorsed using 30mg of Hydocodone daily for the past year, and will be started on a Subutex taper this am. Pt endorses PMH of DM II, HTN, Chronic Pain and multiple surgeries, pt with a history of withdrawal induced delirium. Endorses PPH of Anxiety and Depression. Pt endorses NKA, full code and Diabetic Diet. Pt administered Bentyl(stomach cramps) and 2mg Ativan(anxiety and withdrawals) as PRN medication on this shift. Pt currently on Valium and Subutex tapers. Pts last CIWA . Pt is A/O x4, and able to make needs known. Pt is calm and cooperative with account underwriter. Pt with linear thought process and clear speech pattern. Pt has insight and and motivation for success. Pt is hopeful, but realistic about his future. Bed in low position with wheels locked and side rails up x2.
--- NOTE | 2018-04-03 19:30 | NUR ---
START OF SHIFT Pt is a 58 y/o male admitted on the 04/01/18 for ETOH and opiate withdrawal. Pt continues a 5 Day Valium taper on 04/02/18 and continues a 3 day Subutex, tolerating both tapers well. Upon rounds, Pt presented with anxiety, agitation, fatigue, sweats, stomach cramps, tremors, flushed skin, chills, headache, restlessness. Pt verbalized concerns about coping skills and to speak with the practice billing associate about medications. Support was offered and endorsed to the charge nurse and making sure administration is aware. Pt verbalizes understands and states, "Thank you for listening to me." Pt received PRN Bentyl and Ativan with scheduled medication by day shift, noted effective. Last blood sugar was 120 with not coverage needed. Last CIWA 21 and COWS 19. Medications due. Safety measures in place. Call light within reach. Will continue to monitor. Addendum: 04/03/18 at 2345 by NANDA COBB RN Pt continues to be 1:1 for unsteady gait.
[2018-04-03 20:00] VITALS: BP 105/78
--- NOTE | 2018-04-03 20:53 | NUR ---
PRN MEDICATION ADMINISTRATION Pt complains of stomach cramps. PRN Bentyl was given per MD order. Call light within reach. Will continue to monitor.
--- NOTE | 2018-04-03 21:50 | NUR ---
PRN MEDICATION REASSESSMENT Pt states, "Stomach cramps are much better now." Medication effective. Call light within reach. Safety measures in place. Will continue to monitor.
[2018-04-03] MEDS: TRAZODONE 100 MG TABLET PO PRN (22:45)
--- NOTE | 2018-04-03 22:45 | NUR ---
PRN TRAZODONE, ATIVAN 2mg AND IMODIUM ADMINISTRATION Pt requests sleep aid. Pt complains anxiety, agitation, restlessness. CIWA of 22. Pt verbalized 1 bout of diarrhea. PRN medication were given per MD orders. Safety measures in place. Call light within reach. Will continue to monitor.
--- NOTE | 2018-04-03 23:45 | NUR ---
PRN TRAZODONE, ATIVAN 2mg AND IMODIUM REASSESSMENT Pr BEEF SPECIALIST Pt was noted to sleep in intervals and now noted awake, looking for a box of food that he thought he brought into the hospital. Pt oriented to person, place, date, and situation. No further episodes of diarrhea reported by the Pt. PRN Trazodone and Ativan 2mg noted as intermittently effective. Safety measures in place. Call light within reach. Will continue to monitor.
[2018-04-04 00:12] VITALS: BP 138/81
[2018-04-04] MEDS: HYDROXYZINE PAMOATE 25 MG CAPSULE PO PRN (00:14)
[2018-04-04] MEDS: IBUPROFEN 600 MG TABLET PO PRN (00:14)
[2018-04-04] MEDS: QUETIAPINE FUMARATE 25 MG TABLET PO PRN ×2 (00:14→21:47)
--- NOTE | 2018-04-04 00:14 | NUR ---
PRN VISTARIL, SEROQUEL, AND MOTRIN ADMINISTRATION Pt noted to be anxious, agitated, and restless. Pt also complains of lower back pain which is chronic 04/26. PRN medication were given per MD orders. Safety measures in place, call light within reach. Will continue to monitor.
--- NOTE | 2018-04-04 01:14 | NUR ---
PRN VISTARIL, SEROQUEL, AND MOTRIN REASSESSMENT Pt found in bed with eyes closed. Respirations even and unlabored. No restlessness noted. Medication effective. Safety measures in place. Call light within reach. Will continue to monitor.
--- NOTE | 2018-04-04 04:00 | NUR ---
VITALS REFUSED COWS and CIWA DEFERRED Pt noted in bed with eyes closed. Attempted to run vitals, Pt refused. Respiration rate 16. Cows and CIWA unable to be completed per order. Safety measures in place. Call light within reach. Will continue to monitor. Addendum: 04/04/18 at 0431 by NANDA COBB RN Amended: Links added.
[2018-04-04] MEDS: PANTOPRAZOLE SODIUM 40 MG TABLET.DR PO SCH (06:14)
--- NOTE | 2018-04-04 07:27 | NUR ---
END OF SHIFT Pt is a 58 y/o male admitted on the 04/01/18 for ETOH and opiate withdrawal. Pt continues a 5 Day Valium taper and a 3 day Subutex, tolerating both tapers well. Pt presented with anxiety, agitation, fatigue, sweats, stomach cramps, tremors, flushed skin, chills, headache, restlessness and 1 bout of diarrhea. Pt also presented with intermittent bouts of confusion during the morning medication pass. Pt stated, "I'm looking for my wallet" and "Where is my box of food, I just had it." Pt is able to be reoriented to situation, place, and time. Scheduled medication and PRN Trazodone, Ativan, Imodium, Bentyl, Vistaril, Seroqual, and Motrin were administered. Medication effective as verbalized by Pt. Last COWS 16 CIWA 22. Pt slept 6 hours. Intake 930mls, void x 2, stool x 1. Pt continues to be 1:1 for unsteady gait. Safety measures in place. Call light within reach. Will continue to monitor. Pt's needs have been met. Endorsed to the day shift nurse.
--- NOTE | 2018-04-04 07:30 | NUR ---
START OF SHIFT Pt 58 y/o male admitted for etoh withdrawal. Pt received in room awake with 1: 1 sitter to monitor for safety, unsteady gait. Pt alert and oriented to name and place only. Perrla. Skin warm and moist to touch. Respirations even and unlabored. Bilateral hand tremors noted. Pt appears disheveled with hair uncombed, clothes, and empty drink bottles scattered throughout the room. Encouraged to maintain hygiene. Pt with episodes of rambling/ talking to self this morning. Reoriented pt and will continue to monitor. It was reported that pt slept for 6 hours last night. Last cows=22 ciwa=16 reported @1999. Pt is on a 5 day valium taper and is on day 3. Pt is also on a 3 day subutex taper and is on day 2. Bed on lowest position with side rails x2 up for safety. Call light within reach.
[2018-04-04] MEDS: GLIMEPIRIDE 4 MG TABLET PO SCH (07:50)
[2018-04-04] MEDS: METFORMIN HCL 500 MG TABLET PO SCH ×2 (07:50→18:00)
[2018-04-04] MEDS: BLOOD SUGAR DIAGNOSTIC 1 EACH STRIP VI SCH ×4 (07:52→21:53)
[2018-04-04 08:00] VITALS: BP 126/82
--- NOTE | 2018-04-04 08:00 | NUR ---
COWS/ CIWA ASSESSMENT cows=17 ciwa=18. Pt with bilateral hand tremors noted. Pt not able to sit still, very restless. Pt also very irritable with pressured speech noted. Pt also observed talking/ mumbling to self. Skin warm and moist to touch.
[2018-04-04] MEDS: THIAMINE HCL 100 MG TABLET PO SCH (08:10)
[2018-04-04] MEDS: METHOCARBAMOL 750 MG TABLET PO SCH ×3 (08:10→21:47)
[2018-04-04] MEDS: MULTIVITAMINS,THERAPEUTIC TABLET PO SCH (08:10)
[2018-04-04] MEDS: DIAZEPAM 5 MG TABLET PO SCH ×4 (08:11→21:48)
[2018-04-04] MEDS: ASPIRIN EC 81 MG TABLET.DR PO SCH (08:11)
[2018-04-04] MEDS: LISINOPRIL 20 MG TABLET PO SCH (08:11)
[2018-04-04] MEDS: FOLIC ACID 1 MG TABLET PO SCH (08:11)
[2018-04-04] MEDS: BUPRENORPHINE HCL 2 MG TAB.SUBL SL SCH ×3 (08:11→21:49)
[2018-04-04] MEDS: INSULIN REGULAR, HUMAN 300 UNIT/3 ML VIAL SQ PRN (08:17)
[2018-04-04] MEDS: LORAZEPAM 1 MG TABLET PO PRN (11:22)
--- NOTE | 2018-04-04 11:27 | NUR ---
PRN ATIVAN Pt with ciwa=19. Pt appears confused. Pt rambling, not able to clearly state what he wants or is trying to state. Pt not able to identify what day it is. Bilateral hand tremors noted. Pt also observed mumbling to self. Ativan 2mg po prn per MD order given and tolerated well.
[2018-04-04] MEDS ORDERED: POTASSIUM CHLORIDE 20 MEQ TAB.PRT.SR PO ONE (11:45)
[2018-04-04 12:00] VITALS: BP 109/69
--- NOTE | 2018-04-04 12:00 | NUR ---
COWS/ CIWA ASSESSMENT cows=17 ciwa=15. Pt with bilateral hand tremors noted. Pt not able to sit still, very restless. Pt also very irritable with pressured speech noted. Pt also observed talking/ mumbling to self. Skin warm and moist to touch.
--- NOTE | 2018-04-04 12:27 | NUR ---
DONALN MARY ATIVAN Pt with ciwa 15. Pt alert and oriented to name and place. Pt still episodes of rambling to self. Bilateral hand tremors noted. Pt anxious and restless, not able to lay still.
[2018-04-04 16:00] VITALS: BP 106/63
[2018-04-04 17:07] LABS: BILIRUBIN,TOTAL 0.4 mg/dL (0.2-1.0); CREATININE 0.8 mg/dL (0.6-1.3); POTASSIUM 3.6 mmol/L (3.5-5.1); TOTAL PROTEIN, SERUM 5.8 g/dL (6.4-8.2)
[2018-04-04] MEDS: CLONIDINE HCL 0.1 MG TABLET PO PRN (18:07)
--- NOTE | 2018-04-04 18:07 | NUR ---
PRN CATAPRES pt anxious and irritable. Catapres po prn per MD order given and tolerated well.
[2018-04-04] MEDS ORDERED: LORAZEPAM 1 MG TABLET PO PRN ×2 (18:45)
--- NOTE | 2018-04-04 19:07 | NUR ---
PRN EVAL CATAPRES Pt states medication is effective.
--- NOTE | 2018-04-04 19:24 | NUR ---
END OF SHIFT Pt 58 y/o male admitted for etoh withdrawal. Pt alert and oriented to name and place only. Perrla. Skin warm and moist to touch. Respirations even and unlabored. Bilateral hand tremors noted. Pt appears disheveled. Clothes and food wrappings scattered throughout the room. Encouraged to maintain hygiene. Pt remains on 1:1 for safety. Pt with episodes of rambling to self throughout the day. Pt needed reorientation throughout the day. Pt isolative to room today. Pt with no peer interaction. Pt did not attend group activity. Pt was seen by MD today. Pt medication compliant. Last cows=17 ciwa=15 @ 1600. Pt is on a 5 day valium and is on day 2. Pt also on a 5 day subutex and is on day 2. Bed on lowest position with side rails x2 up for safety. Call light within reach. Pt remains with sitter 1:1 to monitor for safety.
--- NOTE | 2018-04-04 19:30 | NUR ---
Start of Shift Pt admitted 04/01/18 for medically managed withdrawal from ETOH and Opiates. Pt is listed as a full code with NKSs and on a carbohydrate controlled diet DM Type II. Pt appears diaphoretic, tremulous with unsteady gait (pt is on 1:1 observation for safety).Affect is flat/blunted, behavior erratic at times. Room is messy with empty food and drink containers. Pt appears depressed/anxious, accompanied with psychomotor agitation. 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 Pt is at times confused and aphasic, and hallucinating. At present pt is communicative and unsure whether he is experiencing A/V hallucinations, saying its mahamed hard to tell. Pt presents with c/o generalized B/As, H/A 01/24. Denies N/V, diarrhea improving, no HI/SI. Pt claims he had 19 months of sobriety until previous week when he picked up at a outing at cabin. Longest period of sobriety is 24 months. Pt states his , who became sober 1 year ago, encouraged him to enter detox. Coping skills and reality orientation reviewed with patient, pt signals understanding. Full safety measures remain in place, including fall/seizure. Will continue to monitor for duration of shift and promptly attend to all s/sxs distress or w/d.
[2018-04-04 21:31] VITALS: BP 102/70
--- NOTE | 2018-04-04 21:33 | NUR ---
COWS/CIWA COWS 15, CIWA 16, aeb anxiety, agitation with frequent shifting, diaphoresis, dilated pupils, HR 99, B/A's and H/A, stomach cramps, tremors, yawning, irritability, and A/V/T hallucinations
--- NOTE | 2018-04-04 21:47 | NUR ---
PRN Med Seroquel 25mg PO given for anxiety, psychosis. S/sx's include anxiety with diaphoresis, HR 99, c/o, possible A/V hallucinations. Will continue to monitor, reassessing in 1 hour.
--- NOTE | 2018-04-04 22:47 | NUR ---
PRN Reassessment Seroquel 25mg PO given 1 hour prior for anxiety/possible psychosis. At present pt is sleeping. RR 16, even and nonlabored. Med effective. Will monitor for any s/sx's w/d or distress and promptly attend
[2018-04-05] VITALS: BP 104/57
--- NOTE | 2018-04-05 | NUR ---
Midnight Rounds VS's obtained and stable, COWS and CIWA deferred r/t pt somnalence. RR 16, even and nonlabored, will continue to monitor for any s/sx's w/d or distress
--- NOTE | 2018-04-05 04:00 | NUR ---
0400 Rounds 0400 VS's obtained/stable. COWS and CIWA deferred r/t pt somnalence. Pt sleeping RR 16 even, with loud snoring. Will continue to monitor for any s/sx's w/d or distress
[2018-04-05 04:50] VITALS: BP 92/60
[2018-04-05] MEDS: PANTOPRAZOLE SODIUM 40 MG TABLET.DR PO SCH (06:41)
[2018-04-05] MEDS: IBUPROFEN 600 MG TABLET PO PRN (06:52)
--- NOTE | 2018-04-05 06:52 | NUR ---
PRN Med Motrin 600mg PO given for left back/groin pain, 01/24. Will continue to monitor to monitor and pass in endorsement for day nurse to reassess.
--- NOTE | 2018-04-05 07:17 | NUR ---
End of Shift Endorsement given to oncoming day nurse. Pt admitted on the for medically managed withdrawal from ETOH and Opiates possibly still experiencing A/V hallucinations. Starting day 4 of a 5 day Valium taper, and day 3 of a 3 day Subutex taper. Received scheduled Valium and PRN Seroquel with evening meds. Motrin 600mg PO given at 0652 for left back/groin pain. Day nurse aware of 0752 reassessment. Pt slept 8 hours for night, with 1:1 observation in room at all times for unsteady gait and confusion (Hx of w/d induced delirium S/P 5 yrs). Pt continues to be cooperatie, somnolent for night. Pt voided 2 during shift with 520mls intake. Pt redirectable and able to be oriented to reality at times. Full safety measure remain in place, with bed locked and in lowest position, side rails up and padded x 2, call toro within reach and frequent rounding.
--- NOTE | 2018-04-05 07:30 | NUR ---
Start Of Shift: Patient is a 58 yr old male who was admitted to [facility] on 04/01/18 for a medically supervised withdrawal from Alcohol ( Vodka) and Opiates ( Hydrocodone), he has been placed on a 5 day Valium taper and this is day 4 and a 3 day Subutex taper and this is day 3. Patient has Diabetes mellitus type 2 and had an 0730 accu-check which was 104 and not requiring any sliding scale insulin. Upon assessing patient is mumbling to himself and is incoherent but is able to be redirected and he is oriented to person, place and date ( minus 1 day). PRN medications given on PM shift : Motrin for groin pain and Seroquel for sleep. He slept for 8 hours and last COWS 15 and CIWA 16 @ 2100. He remains on a 1:1 for unsteady gait and confusion. Continue to follow MD plan of care and offer support as needed.
[2018-04-05] MEDS: METFORMIN HCL 500 MG TABLET PO SCH ×2 (07:33→18:34)
[2018-04-05] MEDS: BLOOD SUGAR DIAGNOSTIC 1 EACH STRIP VI SCH ×4 (07:33→20:42)
[2018-04-05] MEDS: GLIMEPIRIDE 4 MG TABLET PO SCH (07:33)
[2018-04-05 07:36] LABS: BILIRUBIN,TOTAL 0.5 mg/dL (0.2-1.0); CREATININE 0.9 mg/dL (0.6-1.3); POTASSIUM 4.1 mmol/L (3.5-5.1); TOTAL PROTEIN, SERUM 6.4 g/dL (6.4-8.2)
[2018-04-05 07:42] LABS: MAGNESIUM 2.2 mg/dL (1.8-2.4)
--- NOTE | 2018-04-05 07:52 | NUR ---
PRN Reassess patient states that the Motrin was not effective, he now states that he has back/sciatic pain 05/27, will administer scheduled Robaxin with am meds and monitor for effectiveness.
--- NOTE | 2018-04-05 08:00 | NUR ---
COWS 12 CIWA 19 Patient has withdrawal symptoms that include generalized body aches and muscle spasms, confusion, incoherent speech, emotional volatility, restless legs, pressured speech and disorganized thoughts. Scheduled Robaxin was given with his scheduled am medications that also included Valium 5 MG and Subutex 2 MG. Will continue to monitor.
[2018-04-05 08:03] VITALS: BP 110/69
[2018-04-05] MEDS: METHOCARBAMOL 750 MG TABLET PO SCH ×3 (08:07→20:36)
[2018-04-05] MEDS: MULTIVITAMINS,THERAPEUTIC TABLET PO SCH (08:07)
[2018-04-05] MEDS: DIAZEPAM 5 MG TABLET PO SCH ×3 (08:07→20:36)
[2018-04-05] MEDS: FOLIC ACID 1 MG TABLET PO SCH (08:07)
[2018-04-05] MEDS: THIAMINE HCL 100 MG TABLET PO SCH (08:07)
[2018-04-05] MEDS: LISINOPRIL 20 MG TABLET PO SCH (08:08)
[2018-04-05] MEDS: ASPIRIN EC 81 MG TABLET.DR PO SCH (08:08)
[2018-04-05] MEDS ORDERED: BUPRENORPHINE HCL 2 MG TAB.SUBL SL SCH (09:00)
[2018-04-05] MEDS: INSULIN REGULAR, HUMAN 300 UNIT/3 ML VIAL SQ PRN (11:48)
--- NOTE | 2018-04-05 11:50 | NUR ---
Blood Sugar 181, 3 U Reg Insulin given RLQ
[2018-04-05 12:00] VITALS: BP 127/69
--- NOTE | 2018-04-05 12:00 | NUR ---
COWS 11 / CIWA 15 Patients withdrawal symptoms present as bilateral hand tremors, confusion, loose thoughts, unsteady gait, generalized body aches/pain, stuffy nose. MD placed an order for Toradol 30MG IM PRN for pain relief, will administer as ordered and monitor.
--- NOTE | 2018-04-05 13:40 | NUR ---
PRN Toradol Toradol 30 MG IM given for reports of lower back pain 04/26, will continue to monitor and reassess.
[2018-04-05] MEDS: KETOROLAC TROMETHAMINE 30 MG INJ IM PRN ×2 (13:42→23:32)
--- NOTE | 2018-04-05 14:40 | NUR ---
PRN Toradol Reassess Patient states that pain level has reduced to 4/10, lower back pain improved with Toradol 30 MG IM, will continue to monitor
[2018-04-05 16:00] VITALS: BP 110/71
--- NOTE | 2018-04-05 16:00 | NUR ---
COWS 11 / CIWA 15 Patients withdrawal symptoms present as bilateral hand tremors, confusion, loose thoughts, unsteady gait, generalized body aches/pain, stuffy nose. Toradol 30MG IM was given with positive results in pain relief.
--- NOTE | 2018-04-05 16:45 | NUR ---
BS 100
--- NOTE | 2018-04-05 19:10 | NUR ---
End Of Shift: Patient is a 58 yr old male who was admitted to [facility] on 04/01/18 for a medically supervised withdrawal from Alcohol ( Vodka) and Opiates ( Hydrocodone), he has been placed on a 5 day Valium taper and this is day 4 and a 3 day Subutex taper and this is day 3. Patient has Diabetes mellitus type 2 requiring AC and HS Accu checks,see eMar. PRN medications given on this shift : Toradol 30 MG IM for back pain which was effective. He has attended groups today and interacting with his peers. He had a fluid intake of 2400 ML, 8 voids and 3 BM and last COWS 11 and CIWA 15 @ 1600. He remains on a 1:1 for unsteady gait. Continue to follow MD plan of care and offer support as needed.Endorsed to shift commander.
--- NOTE | 2018-04-05 19:46 | NUR ---
START OF SHIFT NOTE Rcvd report from outgoing nurse, pt is currently in group therapy. Pt is a 58 y/o male A/O to person, place, time, and purpose. Pt was admitted for medically supervised withdrawal from ETOH and Opiates. Pt is c/o racing thoughts, diarrhea, abdominal cramping, sweats, and visual disturbances. Pt also states my skin is on fire. Pt is presenting w/ anxiety, blunt affect, depressed mood, restlessness, and tremors. Pt has a medical h/o HTN and DMII. Pt has been compliant w/ his carb control diet. Pt is on 1:1 observation for unsteady gait. PRN Toradol was given @ 1340 for back pain, noted effective. Pt denies any S/I and H/I. Last CIWA 15 and COWS 11 @ 1600. Call light is within reach. Pt will continue to be monitored and needs met.
[2018-04-05 20:00] VITALS: BP 123/69
--- NOTE | 2018-04-05 20:00 | NUR ---
CIWA AND COWS ASSESSMENT CIWA 17 and COWS 13. Pt c/o racing thoughts, anxiety, diarrhea, "shakes", sweats, visual disturbances, and his "skin feeling like it's on fire. Pt is presenting w/ depressed mood, blunt affect, pressured speech, and agitation. V/S: T:98.6, P:89, RR:16, SPO2:97%, and BP:123/69.
[2018-04-05] MEDS: CLONIDINE HCL 0.1 MG TABLET PO PRN (20:36)
--- NOTE | 2018-04-05 20:36 | NUR ---
PRN CLONIDINE ADMINISTRATION Clonidine 0.1mg given for increased anxiety, sweats, and chills. COWS 13 and CIWA 17. V/S WNL. Will reassess pt in 1 hr.
--- NOTE | 2018-04-05 21:36 | NUR ---
PRN CLONIDINE REASSESSMENT Pt states s/s of anxiety, sweats, and chills have diminished. Will continue to monitor pt.
[2018-04-05] MEDS: TRAZODONE 100 MG TABLET PO PRN (22:11)
--- NOTE | 2018-04-05 22:11 | NUR ---
PRN TRAZODONE ADMINISTRATION Trazodone 100mg given c/o difficulty sleeping and insomnia. Will reassess pt in 1 hr.
--- NOTE | 2018-04-05 23:11 | NUR ---
PRN TRAZODONE REASSESSMENT Pt states they have tried to fall asleep,but can't because the chronic back pain has returned is preventing him from lying down in certain position. Will follow up w/ pain medication.
[2018-04-05] MEDS: ACETAMINOPHEN 325 MG TABLET PO PRN (23:30)
--- NOTE | 2018-04-05 23:32 | NUR ---
PRN TORADOL AND TYLENOL ADMINISTRATION Trazodone 30mg and Tylenol 650mg given for lower back pain. Pt states pain is 8/10, localized in the medial lower back, the pain is sharp/stabbing, it's aggravated by postural change, and relieved only w/ medication. Will reassess pt in 30 min.
--- NOTE | 2018-04-06 | NUR ---
CIWA AND COWS DEFERRED Pt is in bed w/ his eyes closed. Pt's respirations are unlabored and even.
--- NOTE | 2018-04-06 00:32 | NUR ---
PRN TORADOL AND TYLENOL REASSESSMENT Pt is in bed w/ his eyes closed. Pt's respirations are unlabored and even.
--- NOTE | 2018-04-06 02:09 | NUR ---
CIWA AND COWS ASSESSMENT CIWA 17 and COWS 13. Pt presenting w/ anxiety, sweats, agitation, and insomnia. Pt is c/o vivid and frightening dreams that wake him up. I reassured him that he was in a safe place and that what he was experiencing was normal for withdrawal. Pt requested assistance getting back to sleep. I informed pt to go down and smoke, and I would see what he ahd available.
[2018-04-06] MEDS: QUETIAPINE FUMARATE 25 MG TABLET PO PRN (02:51)
[2018-04-06] MEDS: HYDROXYZINE PAMOATE 25 MG CAPSULE PO PRN (02:51)
--- NOTE | 2018-04-06 02:51 | NUR ---
PRN VISTARIL AND SEROQUEL ADMINISTRATION Seroquel 25mg and Vistaril 25mg given for anxiety and agitation. Will reassess pt in 1 hr.
--- NOTE | 2018-04-06 04:00 | NUR ---
PRN VISTARIL AND SEROQUEL Pt is in bed w/ his eyes closed.Pt's respirations are unlabored and even.
--- NOTE | 2018-04-06 04:00 | NUR ---
CIWA AND COWS DEFERRED Pt is in bed w/ his eyes closed. Pt's respirations are unlabored and even.
[2018-04-06] MEDS: PANTOPRAZOLE SODIUM 40 MG TABLET.DR PO SCH (07:06)
--- NOTE | 2018-04-06 07:17 | NUR ---
END OF SHIFT NOTE Endorsed pt to oncoming nurse, pt is currently in his room. Pt is a 58 y/o male A/O to person, place, time, and purpose. Pt was admitted for medically supervised withdrawal from ETOH and Opiates. Pt completed a 3 day Subutex taper and completed day 4 of a 5 day Valium taper. Pt is c/o racing thoughts, diarrhea, abdominal cramping, sweats, and visual disturbances. Pt also states my skin is on fire. Pt is presenting w/ anxiety, blunt affect, depressed mood, restlessness, tremors, and insomnia. Pt has a medical h/o HTN and DMII. Pt has been compliant w/ his carb control diet. Last Accucheck 130 @ 1999. Pt is on 1:1 observation for unsteady gait. PRN Clonidine 0.1mg given @ 2035 for sweats and chills, noted effective. PRN Trazodone 100mg given @ 2211 for sleep, noted effective temporarily. PRN Toradol 30mg IM and Tylenol 650mg was given @ 2332 for back pain, noted effective. PRN Seroquel 25mg and Vistaril 25mg given @ 0251 for anxiety and agitation, noted effective. Pts fluid intake was 850 ml, he voided 3 times, and he had 1 BM. Pt slept for 3 hrs. Last CIWA 17 and COWS 13 @ 0200. Call light is within reach.
--- NOTE | 2018-04-06 07:33 | NUR ---
Start of shift note; Received report from night nurse. Patient is a 58 y/o male admitted on 04/01/18 for ETOH/Opiate withdrawal. Patient was placed on 5 day Valium taper and 3 day Subutex taper. Patient completed Subutex taper and currently on last day of Valium taper. Patient appears older than age stated, dark circles around eyes noted, fearful, anxious, easily overwhelmed, easily distracted, complaining of abdominal cramps, muscle aches, chills, difficulty concentrating noted.Patient reported insomnia and difficulty falling asleep. Patient received PRN Trazodone, Toradol , Tylenol, and Clonidine all noted to be effective per endorsement. Educated patient regarding the importance of compliance to treatment and medication regime. Patient is currently on 1:1 supervision for safety due to unsteady gait. Patient is Diabetic type 2 , educated patient regarding the importance of compliance to diet, verbalized understanding. All safety measures secured. Will closely monitor patient.
[2018-04-06] MEDS: METFORMIN HCL 500 MG TABLET PO SCH ×2 (07:52→17:35)
[2018-04-06] MEDS: BLOOD SUGAR DIAGNOSTIC 1 EACH STRIP VI SCH ×4 (07:52→20:35)
[2018-04-06] MEDS: GLIMEPIRIDE 4 MG TABLET PO SCH (07:52)
--- NOTE | 2018-04-06 07:52 | NUR ---
Accu-check; Blood sugar check done, obtained 107mg/dl no insulin coverage needed per protocol.
[2018-04-06 08:00] VITALS: BP 124/73
--- NOTE | 2018-04-06 08:00 | NUR ---
COWS/CIWA note; Patient is AOX4, with current COWS score of 12 and CIWA score of 13 manifested by agitation, anxiety, difficulty concentrating, difficulty sleeping, fatigue, generalized discomfort, insomnia, muscle aches, restlessness, sensitivity to light, tremors. Patient remains on 1:1 supervision until further MD evaluation.
[2018-04-06] MEDS: THIAMINE HCL 100 MG TABLET PO SCH (08:26)
[2018-04-06] MEDS: ASPIRIN EC 81 MG TABLET.DR PO SCH (08:26)
[2018-04-06] MEDS: LISINOPRIL 20 MG TABLET PO SCH (08:26)
[2018-04-06] MEDS: MULTIVITAMINS,THERAPEUTIC TABLET PO SCH (08:26)
[2018-04-06] MEDS: FOLIC ACID 1 MG TABLET PO SCH (08:26)
[2018-04-06] MEDS: DIAZEPAM 5 MG TABLET PO SCH ×2 (08:26→20:30)
[2018-04-06] MEDS: METHOCARBAMOL 750 MG TABLET PO SCH ×3 (08:26→20:30)
[2018-04-06] MEDS: ACETAMINOPHEN 325 MG TABLET PO PRN ×2 (11:02→22:26)
--- NOTE | 2018-04-06 11:02 | NUR ---
PRN Tylenol; Patient is complaining of mild generalized pain rated 5/10 on adult pain scale. Will continue to monitor patient for effectiveness of medication.
--- NOTE | 2018-04-06 11:14 | NUR ---
MD order (D/C sitter) Patient was seen and evaluated by MD. MD ordered to Discontinue 1:1 sitter, patient is AOX4 able to ambulate without difficultly, no further assistance needed per MD. Order carried out.
[2018-04-06 12:00] VITALS: BP 124/78
--- NOTE | 2018-04-06 12:00 | NUR ---
COWS/CIWA note; Patient is AOX4, score continues to be COWS score of 12 and CIWA score of 13 manifested by agitation, anxiety, difficulty concentrating, difficulty sleeping, fatigue, generalized discomfort, insomnia, muscle aches, restlessness, sensitivity to light, tremors. Patient remained compliant with treatment plan and medication regime.
--- NOTE | 2018-04-06 12:08 | NUR ---
Accu-check/insulin; Blood sugar checked, obtained 138mg/dl . Insulin 2units given per protocol. Will closely monitor patient.
[2018-04-06] MEDS: INSULIN REGULAR, HUMAN 300 UNIT/3 ML VIAL SQ PRN (12:09)
--- NOTE | 2018-04-06 12:14 | NUR ---
Re-assessment; Patient reported improvement of pain, generalized pain reported to be 2/10 at this time. PRN medication noted to be effective.
[2018-04-06] MEDS: KETOROLAC TROMETHAMINE 30 MG INJ IM PRN (15:40)
--- NOTE | 2018-04-06 15:40 | NUR ---
PRN Toradol; Patient is complaining of severe generalized pain rated 9/10 on pain scale. Patient is also complaining of muscle aches/joint pain. PRN Toradol 30mg IM given to patient's left deltoid. Patient tolerated procedure well.
[2018-04-06 16:00] VITALS: BP 113/69
--- NOTE | 2018-04-06 16:00 | NUR ---
COWS/CIWA note; Patient is awake, alert oriented to name, time, place and situation. Patient's current COWS score is 11 and CIWA score of 10 manifested by agitation, anxiety, difficulty concentrating, difficulty sleeping, fatigue, generalized discomfort, muscle aches, restlessness, sensitivity to light, tremors and abdominal cramps. Patient denies visual and auditory hallucination. Patient remained compliant with treatment plan.
--- NOTE | 2018-04-06 16:40 | NUR ---
Re-assessment; Patient's generalized pain decreased from 9 to 6/10. Patient is calm and comfortable at this time.
--- NOTE | 2018-04-06 16:59 | NUR ---
Accu-check; Blood sugar check done, obtained 115mg/dl no insulin given per protocol.
--- NOTE | 2018-04-06 18:25 | NUR ---
End of shift note; Patient is awake, alert, oriented to name, place , date and time and situation. Patient is currently on his last day of Valium taper today. Patient presented with anxiety, agitation, difficulty concentrating, complaining of abdominal cramps, generalized pain and muscle aches, fatigue, flushed face, intermittent perspiration, restless legs, yawning. No visual/auditory hallucination noted. 1:1 supervision was discontinued per MD order. Patient able to ambulate without any difficulty. Patient received PRN Tylenol and Toradol for pain both noted to be effective. Patient's last COWS score is 11 and CIWA score of 10. his last Blood sugar at 1650 is 115mg/dl, no insulin given per protocol. Patient remained compliant with treatment plan and medication regime. All safety measures secured. Met all needs.
--- NOTE | 2018-04-06 19:49 | NUR ---
START OF SHIFT NOTE Rcvd report from ougoing nurse, pt is currently in his room. Pt is a 58 y/o male A/O to person, place, time, and purpose. Pt was admitted for medically supervised withdrawal from ETOH and Hydrocodone. Pt is c/o body aches, abdominal cramps, chlls, and hot flahses. Pt has been presenting w/ tremors, racing thoughts, difficulting concentrating, anixety, agitation, depressed and withdrawn mood, and blunt affect. Pt denies S/I and H/I. PRN Tylenol given @ 1200 for body aches, noted effective. PRN Toradol given @ 1600 for chronic back pain, noted effective. Last CIWA 10 and COWS 11 @ 1600. Call light is within reach. Pt will continue to be monitored and needs met.
[2018-04-06 20:00] VITALS: BP 132/88
--- NOTE | 2018-04-06 20:00 | NUR ---
CIWA AND COWS ASSESSMENT CIWA 13 and COWS 14. Pt presenting w/ anxious and depressed mood, sweats, severe body aches, abdominal cramping, tremors, agitation, and burning tingling skin. Pt states "everything was going fine until this morning. I don't know why". I explained withdrawal is a process that takes time. I reassured him he is on the right track and that what he is feeling is normal. V/S: T:98.3, P:76, RR:18, SPO2:97, and BP:132/88.
[2018-04-06] MEDS: TRAZODONE 100 MG TABLET PO PRN (22:26)
--- NOTE | 2018-04-06 22:26 | NUR ---
PRN TYLENOL AND TRAZODONE ADMINISTRATION Tylenol 650mg and Trazodone 100mg given for body aches (neck) and insomnia. Neck pain 6/10, localized, sharp, agravated by postural changes, and alleviated only by medication. Will reassess pt in 1 hr.
--- NOTE | 2018-04-06 23:26 | NUR ---
PRN TYLENOL AND TRAZODONE REASSESSMENT Pt is in bed w/ his eyes closed. Pt's respirations are unlabored and even.
--- NOTE | 2018-04-07 00:03 | NUR ---
CIWA AND COWS DEFERRED. V/S REFUSED Pt is in bed w/ his eyes closed. Pt's respirations are unlabored and even.
--- NOTE | 2018-04-07 02:42 | NUR ---
CIWA AND COWS ASSESSMENT CIWA 12 and COWS 12. Pt presenting w/ back pain, anxiety, agitation, restlessness, abdominal cramping, racing thoughts, depressed mood, and flat affect. Pt continues to worry about treatment process and s/s of withdrawal. I reassured him he is on the track and that everyhting he is going through is part of the process of withdrawal and the beginning of recovery. He stated he felt better about the situation. V/S: T:98.3, P:81, RR:16, SPO2:98, and BP:129/81. Will continue to monitor pt.
--- NOTE | 2018-04-07 04:05 | NUR ---
CIWA AND COWS DEFERRED. V/S REFUSED Pt is in bed w/ his eyes closed. Pt's respirations are unlabored and even.
[2018-04-07] MEDS: PANTOPRAZOLE SODIUM 40 MG TABLET.DR PO SCH (06:56)
--- NOTE | 2018-04-07 07:10 | NUR ---
END OF SHIFT NOTE Endorsed pt to oncoming nurse, pt is currently in his room. Pt is a 58 y/o male A/O to person, place, time, and purpose. Pt was admitted for medically supervised withdrawal from ETOH and Hydrocodone. Pt is c/o body aches, abdominal cramps, chlls, and hot flahses. Pt has been presenting w/ tremors, racing thoughts, difficulting concentrating, anixety, agitation, insomnia, disheveled and unkempt appearance, depressed and withdrawn mood, and blunt affect. PRN Tylenol 650mg and Trazodone 100mg given @ 2226 for body aches and insomnia, noted effective. Pt's fluid intake was 1100ml, he voided 3 times, and had 1 BM. Pt slept for 5.5 hrs. Last CIWA 12 and COWS 12 @ 0245. Call light is within reach.
[2018-04-07 07:23] LABS: BILIRUBIN,TOTAL 0.3 mg/dL (0.2-1.0); CREATININE 0.8 mg/dL (0.6-1.3); POTASSIUM 4.1 mmol/L (3.5-5.1); TOTAL PROTEIN, SERUM 5.8 g/dL (6.4-8.2)
--- NOTE | 2018-04-07 07:30 | NUR ---
START OF SHIFT NOTE Received report from night nurse, 58 year old male admitted for ETOH/Hydrocodone withdrawal and patient completed his Ativan and Subutex taper tolerated well. Per endorsement patient received PRN Trazodone,Tylenol effective per night nurse, Last CI, slept for 5 hours and patient continues on BS monitoring. Received patient asleep responsive to verbal and tactile stimuli. Patient states " I please go away i wanted to sleep". Patient noted breathing normal no SOB noted. Skin intact warm and dry to touch. All safety measures in place, Call light within reach. Will cont to monitor. Addendum: 04/08/18 at 1913 by ELKE ASENCIO LVN CORRECTION-Patient completed his Valium and Subutex taper.
[2018-04-07] MEDS: GLIMEPIRIDE 4 MG TABLET PO SCH (07:50)
[2018-04-07] MEDS: BLOOD SUGAR DIAGNOSTIC 1 EACH STRIP VI SCH ×4 (07:52→20:44)
[2018-04-07] MEDS: INSULIN REGULAR, HUMAN 300 UNIT/3 ML VIAL SQ PRN ×2 (07:54→16:34)
--- NOTE | 2018-04-07 07:54 | NUR ---
BLOOD SUGAR RESULTS Morning blood sugar check done noted with 150mg/dl and patient was given 2units of insulin as ordered on left deltoid. Injection site clean and dry no s/s of bleeding no swelling noted.
[2018-04-07 08:00] VITALS: BP 139/83
--- NOTE | 2018-04-07 08:00 | NUR ---
CIWA AND COWS ASSESSMENT CIWA-13, COWS-12, patient continues to exhibit withdrawal signs such as anxiety, agitation, restlessness, irritability, anhedonia, dysphonia, unkempt room, disheveled appearance, flushed face, body aches, mild light headedness, sweats, hot cold flashes, chills, bilateral hand tremors, yawning. patient is due for scheduled medications.Will cont to monitor.
[2018-04-07] MEDS: ASPIRIN EC 81 MG TABLET.DR PO SCH (08:01)
[2018-04-07] MEDS: METFORMIN HCL 500 MG TABLET PO SCH ×2 (08:01→18:13)
[2018-04-07] MEDS: THIAMINE HCL 100 MG TABLET PO SCH (08:01)
[2018-04-07] MEDS: MULTIVITAMINS,THERAPEUTIC TABLET PO SCH (08:01)
[2018-04-07] MEDS: METHOCARBAMOL 750 MG TABLET PO SCH ×3 (08:01→20:39)
[2018-04-07] MEDS: FOLIC ACID 1 MG TABLET PO SCH (08:01)
[2018-04-07] MEDS: LISINOPRIL 20 MG TABLET PO SCH (08:03)
[2018-04-07 12:00] VITALS: BP 137/93
--- NOTE | 2018-04-07 12:00 | NUR ---
CIWA AND COWS ASSESSMENT CIWA-13, COWS-14, patient is back from groups and lying down in bed. patient complains of 9/10 back ache with facial grimacing, and slumped posture. Pt presents s/s of anxiety, agitation, restlessness, irritability, anhedonia, dysphonia, diaphoresis, unkempt room, has a disheveled appearance, flushed face, body aches, mild light headedness, hot cold flashes, chills, bilateral hand tremors, yawning. Will give Toradol IM for pain. Encouraged pt to use non-pharmacological measures for distraction of pain.
--- NOTE | 2018-04-07 12:00 | NUR ---
BLOOD SUGAR RESULTS Afternoon blood sugar checked as ordered BS result noted 109mg/dl no coverage needed.
[2018-04-07] MEDS: KETOROLAC TROMETHAMINE 30 MG INJ IM PRN ×2 (12:07→22:00)
--- NOTE | 2018-04-07 12:07 | NUR ---
PRN Toradol 30 mg IM PRN given for 9/10 pain, upper back and generalized. Pt exhibited facial grimacing, sitting on the edge on the bed slouching while c/o pain. Endorsement given to primary nurse.
--- NOTE | 2018-04-07 12:27 | NUR ---
TORADOL REASSESSMENT Per patient Toradol was effective pain lower to 3/10.
[2018-04-07] MEDS ORDERED: METHOCARBAMOL 750 MG TABLET PO PRN (12:30)
--- NOTE | 2018-04-07 14:04 | NUR ---
Client continues to attend group sessions and contribute to discussion. Therapist encouraged him to continue attending.
[2018-04-07 16:00] VITALS: BP 139/88
--- NOTE | 2018-04-07 16:00 | NUR ---
CIWA AND COWS ASSESSMENT CIWA-12, COWS-13, Pt continues presents s/s of anxiety, agitation, restlessness, irritability, anhedonia,diaphoresis, unkempt room, has a disheveled appearance, flushed face, body aches, mild light headedness, hot cold flashes, chills, bilateral hand tremors. Encouraged pt to use non-pharmacological measures for distraction of pain.
--- NOTE | 2018-04-07 16:33 | NUR ---
BLOOD SUGAR RESULTS Morning blood sugar check done noted with 132mg/dl and patient was given 2units of insulin as ordered on right deltoid. Injection site clean and dry no s/s of bleeding no swelling noted. Addendum: 04/07/18 at 1709 by ELKE ASENCIO LVN Correction- Evening blood sugar check done
--- NOTE | 2018-04-07 19:09 | NUR ---
END OF SHIFT NOTE Gave report to night nurse, 58 year old male admitted for ETOH/Hydrocodone withdrawal and completed his Ativan and Subutex taper tolerated well. Patient continues to exhibit light leaded, anxiety, agitation, restless, labile facial expression, anhedonia, unkempt room, diaphoretic, patient was given scheduled medications tolerated well. During shift patient received PRN Toradol noted to be effective. Encourage PO fluids as tolerated. Last CIWA score was 12/ COWS-13. Patient continue with blood sugar monitoring last BS was-132 and received 2 units of insulin as per sliding scale. Encourage patient to attend groups activities to learn new coping skills. All safety measures in place, call light within reach. Patient endorse to night nurse in stable condition. Addendum: 04/08/18 at 1913 by ELKE ASENCIO LVN CORRECTION-Patient completed his Valium and Subutex taper.
--- NOTE | 2018-04-07 19:43 | NUR ---
START OF SHIFT NOTE Rcvd report from outgoing nurse. Pt is a 58 y/o male A/O to person, place, time, and purpose. Pt was admitted for medically supervised withdrawal from ETOH and Opiates. Pt has a past medical h/o DMII, hypercholesterolemia, and HTN. Pt is on a carbohydrate controlled diet. Pt has been presenting w/ anxiety, agitation, severe body and joint aches, increased emotional amplitude, depressed and withdrawn mood, blunt affect, racing thoughts, difficulty concentrating, and sweats. Pt denies S/I and H/I. Pt has been c/o chronic back pain. PRN Toradol was given for back pain 04/26, noted effective. Last CIWA 12 and COWS 13. Calll light is within reach. Pt will continue to be monitored and needs met.
--- NOTE | 2018-04-07 20:00 | NUR ---
CIWA AND COWS ASSESSMENT CIWA 11 and COWS 12. Pt presenting w/ back pain, anxiety, depressed and withdrawn mood, racing thoughts, difficulty concentrating, increased emotional amplitude, and agitation. V/S: T:98.3, P:94, RR:12, SPO2:97, and BP: 132/89.
[2018-04-07 20:04] VITALS: BP 132/89
[2018-04-07] MEDS: ACETAMINOPHEN 325 MG TABLET PO PRN (20:39)
--- NOTE | 2018-04-07 20:39 | NUR ---
PRN TYLENOL ADMINISTRATION Tylenol 650mg given for upper back pain. Pt c/o 610 pain between his shoulders that is localized, it is sharp, aggravated by postural change and activity, and alleviated by position change. Will reassess pt in 1 hr.
--- NOTE | 2018-04-07 21:39 | NUR ---
PRN TYLENOL REASSESSMENT Pt states pain has not gone away, but has in fact increased to a 8/10 pain. Pt asked for something stronger like Toradol. Pt stated he had it earlier and it helped.
[2018-04-07] MEDS: TRAZODONE 100 MG TABLET PO PRN (21:59)
--- NOTE | 2018-04-07 22:00 | NUR ---
PRN TRAZODONE AND TORADOL ADMINISTRATION Trazodone 100mg and Toradol 30mg IM given for sleep and severe pain. Pt stated earlier 8 upper back pain. Pt has also been having insomnia during detox. Will reassess pt in 1 hr for Trazodone and 30 min for Toradol IM..
--- NOTE | 2018-04-08 | NUR ---
CIWA AND COWS DEFERRED Pt is in bed w/ his eyes closed. Pt's respirations are unlabored and even.
--- NOTE | 2018-04-08 04:03 | NUR ---
CIWA AND COWS DEFERRED Pt is in bed w/ his eyes closed. Pt's respirations are unlabored and even.
--- NOTE | 2018-04-08 04:45 | NUR ---
CIWA AND COWS ASSESSMENT CIWA 11 and COWS 12. Pt c/o anxiety, body aches, and insomnia. Pt presents w/ sweats and agitation. Pt stated they were woken up by a vivid dream an hour and a half ago and can't fall back asleep. V/S: T:98.2, P:89, RR:14, SPO2:98, and BP:131/85. Pt requesting help to sleep.
[2018-04-08] MEDS: QUETIAPINE FUMARATE 25 MG TABLET PO PRN (04:47)
[2018-04-08] MEDS: HYDROXYZINE PAMOATE 25 MG CAPSULE PO PRN ×2 (04:47→23:16)
--- NOTE | 2018-04-08 04:47 | NUR ---
PRN VISTARIL AND SEROUEL ADMINISTRATION Vistaril 25mg and Seroquel 25mg given for insomnia, agitation, and anxiety. Will reassess pt in 1 hr.
--- NOTE | 2018-04-08 05:47 | NUR ---
PRN VISTARIL AND SEROQUEL REASSESSMENT' Pt is in bed w/ his eyes closed. Pt's respiratiosn are unlabored and even.
[2018-04-08] MEDS: PANTOPRAZOLE SODIUM 40 MG TABLET.DR PO SCH (07:02)
--- NOTE | 2018-04-08 07:14 | NUR ---
END OF SHIFT NOTE Endorsed pt to oncoming nurse. Pt is a 58 y/o male A/O to person, place, time, and purpose. Pt was admitted for medically supervised withdrawal from ETOH and Opiates. Pt has a past medical h/o DMII, hypercholesterolemia, and HTN. Pt is on a carbohydrate controlled diet. Pt has been presenting w/ anxiety, agitation, severe body and joint aches, increased emotional amplitude, depressed and withdrawn mood, blunt affect, racing thoughts, difficulty concentrating, and sweats. Pt has been c/o chronic back pain. PRN Toradol 30mg IM was given @ 2200 for back pain 04/26, noted effective. PRN Tylenol 650mg given @ 2038 for body aches and bupper back pain, noted ineffective. PRN Trazodone 100mg given @ 2200 for insomnia, noted effective. PRN Vistaril 25mg and Seroquel 25mg given @ 0447 for anxiety and agitation, noted effective. Pts fluid intake was 850ml and he voided 2 times. Pt slept for 6 hrs. Last CIWA 11 and COWS 12 @ 0500. Call light is within reach.
--- NOTE | 2018-04-08 07:30 | NUR ---
START OF SHIFT NOTE Received report from night nurse, 58 year old male admitted for ETOH/Hydrocodone withdrawal and patient completed his Ativan and Subutex taper tolerated well. Per endorsement patient received PRN Trazodone, Tylenol, Toradol, Vistaril, Seroquel effective per night nurse, Last CIWA, slept for 6 hours and patient continues on BS monitoring. Received patient asleep responsive to verbal and tactile stimuli. Patient noted breathing normal no SOB noted. Skin intact warm and dry to touch. All safety measures in place, Call light within reach. Will cont to monitor. Addendum: 04/08/18 at 1911 by ELKE ASENCIO LVN Correction- Patient completed his Valium taper.
[2018-04-08] MEDS: BLOOD SUGAR DIAGNOSTIC 1 EACH STRIP VI SCH ×4 (07:35→20:59)
--- NOTE | 2018-04-08 07:35 | NUR ---
BLOOD SUGAR RESULTS Morning blood sugar check done noted with 154 mg/dl and patient was given 2 units of insulin as ordered on left deltoid. Injection site clean and dry no s/s of bleeding no swelling noted.
[2018-04-08] MEDS: GLIMEPIRIDE 4 MG TABLET PO SCH (07:36)
[2018-04-08] MEDS: INSULIN REGULAR, HUMAN 300 UNIT/3 ML VIAL SQ PRN ×3 (07:38→21:08)
[2018-04-08 08:00] VITALS: BP 126/75
--- NOTE | 2018-04-08 08:00 | NUR ---
CIWA AND COWS ASSESSMENT CIWA-12, COWS-13, patient reported s/s of withdrawal such as anxiety, agitation, restlessness, irritability, anhedonia, dysphonia, unkempt room, disheveled appearance, flushed face, body aches, stuffy nose, sweats, light headedness, hot cold flashes, chills, bilateral hand tremors, yawning. Educated patient to use call light for safety, and report to nurse if light headedness increased. patient is due for scheduled medications.Will cont to monitor.
[2018-04-08] MEDS: FOLIC ACID 1 MG TABLET PO SCH (08:02)
[2018-04-08] MEDS: THIAMINE HCL 100 MG TABLET PO SCH (08:02)
[2018-04-08] MEDS: MULTIVITAMINS,THERAPEUTIC TABLET PO SCH (08:02)
[2018-04-08] MEDS: METHOCARBAMOL 750 MG TABLET PO SCH ×3 (08:02→20:40)
[2018-04-08] MEDS: METFORMIN HCL 500 MG TABLET PO SCH ×2 (08:02→18:19)
[2018-04-08] MEDS: ASPIRIN EC 81 MG TABLET.DR PO SCH (08:02)
[2018-04-08] MEDS: LISINOPRIL 20 MG TABLET PO SCH (08:10)
--- NOTE | 2018-04-08 11:42 | NUR ---
BLOOD SUGAR RESULTS Afternoon blood sugar checked as ordered BS result noted 125 mg/dl no coverage needed.
[2018-04-08 12:00] VITALS: BP 125/72
--- NOTE | 2018-04-08 12:00 | NUR ---
CIWA AND COWS ASSESSMENT CIWA-10, COWS-10, Pt continues to presents s/s of anxiety, agitation, restlessness, irritability, anhedonia, dysphonia, diaphoresis, unkempt room, has a disheveled appearance, flushed face, body aches, mild light headedness, hot cold flashes, bilateral hand tremors, patient reports decreased in nausea. Encouraged pt to use non-pharmacological measures for distraction of pain.
[2018-04-08 16:00] VITALS: BP 128/94
--- NOTE | 2018-04-08 16:00 | NUR ---
CIWA AND COWS ASSESSMENT CIWA-9, COWS-9, Pt continues to exhibits s/s of anxiety, agitation, restlessness, irritability, anhedonia, dysphonia, diaphoresis, unkempt room, has a disheveled appearance, flashes, bilateral hand tremors, Encouraged pt to use non-pharmacological measures for distraction of pain.
--- NOTE | 2018-04-08 16:33 | NUR ---
BLOOD SUGAR RESULTS Evening blood sugar checked as ordered BS result noted 193 mg/dl patient was given 3 units of insulin as ordered on right deltoid. Injection site clean and dry no s/s of swelling no bleeding noted.
--- NOTE | 2018-04-08 19:11 | NUR ---
END OF SHIFT NOTE Gave report to night nurse, 58 year old male admitted for ETOH/Hydrocodone withdrawal and completed his Valium and Subutex taper tolerated well. Patient continues to exhibit anxiety, agitation, restless, labile facial expression, anhedonia, unkempt room, diaphoretic, patient was given scheduled medications tolerated well. During shift patient did not receive any PRN'S. Encourage PO fluids as tolerated. Last CIWA score was 9/ COWS-9. Patient continue with blood sugar monitoring last BS was-193 and received 3 units of insulin as per sliding scale. Patient set for discharge in AM. Encourage patient to attend groups activities to learn new coping skills. All safety measures in place, call light within reach. Patient endorse to night nurse in stable condition.
--- NOTE | 2018-04-08 19:30 | NUR ---
START OF SHIFT NOTE RECEIVED REPORT FROM DAY SHIFT NURSE. PATIENT IS A 58 YEAR OLD MALE ADMITTED FOR ETOH WITHDRAWAL. PATIENT COMPLETED 5 DAY VALIUM AND 5 DAY SUBUTEX TAPER. PATIENT IS MEDICALLY CLEARED TO BE DISCHARGE TOMORROW. PATIENT IS DIABETIC. ON BLOOD SUGAR MONITORING. LAST BLOOD SUGAR IS 193 AND RECEIVED 3 UNITS OF REGULAR INSULIN. PATIENT DID NOT REQUIRE PRN MEDICATION. LAST COWS 9 AND CIWA 9. PATIENT IN GROUP AT THIS TIME. SAFETY MEASURES IN PLACE. CALL LIGHT IN REACH. WILL CONTINUE TO MONITOR
[2018-04-08 20:00] VITALS: BP 126/79
--- NOTE | 2018-04-08 20:00 | NUR ---
COWS AND CIWA ASSESSMENT PATIENT PRESENTS WITH ANXIETY "I HAVE A LOT OF ANXIETY " HE STATES, DIFFICULTY SLEEPING "I'M UP MOST OF THE NIGHT , I CANT GET TO SLEEP", INTERMITTENT PERSPIRATION, HEADACHE , SHOULDER PAIN 04/26, TREMORS FELT BUT NOT OBSERVED, AND RESTLESS LEGS. COWS 10 AND CIWA 11 .
[2018-04-08] MEDS: CLONIDINE HCL 0.1 MG TABLET PO PRN (20:40)
--- NOTE | 2018-04-08 20:40 | NUR ---
PRN CLONIDINE AND TORADOL IM ADMINISTRATION PATIENT C/O ANXIETY AND PAIN ON SHOULDERS AND HEADACHE . WILL MONITOR FOR EFFECTIVENESS
[2018-04-08] MEDS: KETOROLAC TROMETHAMINE 30 MG INJ IM PRN (20:44)
--- NOTE | 2018-04-08 21:10 | NUR ---
PRN TORADOL IM RE-ASSESSMENT PATIENT STATES TORADOL IM HELPFUL AND EFFECTIVE. PAIN IS 3/10 AT THIS TIME AND TOLERABLE. WILL CONTINUE TO MONITOR.
--- NOTE | 2018-04-08 21:40 | NUR ---
PRN CLONIDINE ASSESSMENT PATIENT STATES CLONIDINE HELPFUL AND EFFECTIVE. PATIENT IS LESS ANXIOUS . WILL CONTINUE TO MONITOR
[2018-04-08] MEDS ORDERED: CLON0.1T14 PO (23:12)
[2018-04-08] MEDS ORDERED: FOLI1TAB16 PO (23:12)
[2018-04-08] MEDS ORDERED: METF500T6 PO (23:12)
[2018-04-08] MEDS ORDERED: MULT-24 PO (23:12)
[2018-04-08] MEDS ORDERED: METH-406 PO (23:12)
--- NOTE | 2018-04-08 23:15 | NUR ---
COWS AND CIWA ASSESSMENT PATIENT PRESENTS WITH ANXIETY, SWEATING, DIFFICULTY SLEEPING, RESTLESS LEGS AND RESTLESSNESS . COWS 9 AND CIWA 9.
[2018-04-08] MEDS: TRAZODONE 100 MG TABLET PO PRN (23:16)
--- NOTE | 2018-04-08 23:16 | NUR ---
PRN DESYREL AND VISTARIL ADMINISTRATION COWS AND CIWA ASSESSMENT PATIENT PRESENTS WITH ANXIETY, SWEATING, DIFFICULTY SLEEPING, RESTLESS LEGS AND RESTLESSNESS . COWS 9 AND CIWA 9.
[2018-04-09] VITALS: BP 138/87
--- NOTE | 2018-04-09 | NUR ---
COWS AND CIWA DEFERRED PATIENT LYING IN BED WITH EYES CLOSED. RESPIRATION EVEN AND UNLABORED. WILL CONTINUE TO MONITOR
--- NOTE | 2018-04-09 00:16 | NUR ---
PRN VISTARIL AND DESYREL RE-ASSESSMENT PATIENT LYING IN BED WITH EYES CLOSED. RESPIRATION EVEN AND UNLABORED. WILL CONTINUE TO MONITOR
[2018-04-09 04:00] VITALS: BP 123/81
--- NOTE | 2018-04-09 04:00 | NUR ---
COWS AND CIWA DEFERRED PATIENT LYING IN BED WITH EYES CLOSED. RESPIRATION EVEN AND UNLABORED. WILL CONTINUE TO MONITOR
[2018-04-09] MEDS: PANTOPRAZOLE SODIUM 40 MG TABLET.DR PO SCH (06:03)
--- NOTE | 2018-04-09 07:07 | NUR ---
END OF SHIFT NOTE PATIENT SLEPT 7 HOURS. FLUID INTAKE 1,350 ML. VOIDED X 1. NO BM. MONITORED PATIENT THROUGHOUT SHIFT. PATIENT IS DISCHARGING TODAY. PATIENT WAS ANXIOUS, RESTLESS AND WAS C/O GENERALIZED BODY ACHES AND HEADACHE BEGINNING OF SHIFT. SCHEDULED MEDICATION WAS GIVEN. PRN CLONIDINE AND TORADOL IM GIVEN, EFFECTIVE. BLOOD SUGAR AT 2100 WAS 146, 2 UNITS OF REGULAR INSULIN GIVEN ORDERED PER SLIDING SCALE. AT 2316, PATIENT WAS C/O DIFFICULTY FALLING ASLEEP AND ANXIETY. PRN VISTARIL AND TRAZADONE GIVEN, EFFECTIVE. SAFETY MEASURES IN PLACE. CALL LIGHT IN REACH. WILL CONTINUE TO MONITOR. LAST COWS 9 AND CIWA 9
--- NOTE | 2018-04-09 07:30 | NUR ---
START OF SHIFT NOTE Received report from night nurse, 58 year old male admitted for ETOH/Hydrocodone withdrawal and patient completed his Valium and Subutex taper tolerated well. Per endorsement patient received PRN Clonidine, Trazodone, Toradol, Vistaril, effective per night nurse, Last CIWA-9, COWS -9, slept for 7 hours and patient continues on BS monitoring. Received patient alert awake oriented x4, anxious, agitated, restless, c/o of headache. denies any SI/HI. Vital signs WNL. Patient set for discharge today. Educated patient on the discharge process. Patient verbalized understanding. Skin intact warm and dry to touch. All safety measures in place, Call light within reach. Will cont to monitor.
[2018-04-09] MEDS: GLIMEPIRIDE 4 MG TABLET PO SCH (07:39)
[2018-04-09] MEDS: BLOOD SUGAR DIAGNOSTIC 1 EACH STRIP VI SCH (07:39)
--- NOTE | 2018-04-09 07:39 | NUR ---
BLOOD SUGAR RESULTS Morning blood sugar check done noted with 157 mg/dl and patient was given 2 units of insulin as ordered on left deltoid. Injection site clean and dry no s/s of bleeding no swelling noted.
[2018-04-09] MEDS: INSULIN REGULAR, HUMAN 300 UNIT/3 ML VIAL SQ PRN (07:41)
[2018-04-09] MEDS: METFORMIN HCL 500 MG TABLET PO SCH (07:54)
[2018-04-09 08:00] VITALS: BP 107/66
[2018-04-09] MEDS: MULTIVITAMINS,THERAPEUTIC TABLET PO SCH (08:50)
[2018-04-09] MEDS: METHOCARBAMOL 750 MG TABLET PO SCH (08:50)
[2018-04-09] MEDS: ASPIRIN EC 81 MG TABLET.DR PO SCH (08:50)
[2018-04-09] MEDS: THIAMINE HCL 100 MG TABLET PO SCH (08:50)
[2018-04-09] MEDS: FOLIC ACID 1 MG TABLET PO SCH (08:50)
[2018-04-09 08:51] VITALS: BP 136/78
[2018-04-09] MEDS: LISINOPRIL 20 MG TABLET PO SCH (08:51)
[2018-04-09] MEDS: IBUPROFEN 600 MG TABLET PO PRN (08:57)
--- NOTE | 2018-04-09 08:57 | NUR ---
PRN MOTRIN Patient complaining of headache 02/24, non pharmacological intervention ineffective. PRN Motrin 600mg PO administered as ordered. Will cont to monitor and reassess.
--- NOTE | 2018-04-09 09:45 | NUR ---
DISCHARGE NOTE Patient is alert awake oriented x4 discharge from [facility] in stable condition. Patient denies any SI/HI. Vital signs WNL. Skin intact warm and dry to touch. Patient reported Motrin was helpful in lowering his headache to 2/10. All discharge paper work completed signed and dated. All belongings returned to the patient including medications, personal belongings. Educated patient on the discharge process, patient verbalized understanding. Patient discharge at 0945. notified.
== END 2018-04-09 09:45 | disposition other institution (70) | DRG 895 ==
LOC: SRC 14:41
PROVIDERS: ADMIT Family Medicine Addiction Medicine; ATTEND Family Medicine Addiction Medicine
PROC: HZ2ZZZZ Detoxification Services for Substance Abuse Treatment (ICD-10-PCS; principal; 2018-04-01)
PROC: HZ41ZZZ Group Counseling for Substance Abuse Treatment, Behavioral (ICD-10-PCS; 2018-04-03)
DX: F10.231 Alcohol dependence with withdrawal delirium (principal); F11.23 Opioid dependence with withdrawal; Y90.7 Blood alcohol level of 200-239 mg/100 ml; F41.1 Generalized anxiety disorder; M47.812 Spondylosis without myelopathy or radiculopathy, cervical region; M47.816 Spondylosis without myelopathy or radiculopathy, lumbar region; G89.29 Other chronic pain; F17.210 Nicotine dependence, cigarettes, uncomplicated; E78.5 Hyperlipidemia, unspecified; E87.6 Hypokalemia; E11.9 Type 2 diabetes mellitus without complications; Z79.84 Long term (current) use of oral hypoglycemic drugs; B19.20 Unspecified viral hepatitis C without hepatic coma; I10 Essential (primary) hypertension; F32.9 Major depressive disorder, single episode, unspecified; G47.00 Insomnia, unspecified
CPT/HCPCS: 36415; 70030-TC; 80307; 80361; 83735; 85025; 86592; 86705; 86803; 87340; 87806; G0480; J1815; J1885; Q0162